=== PATIENT | male | born 1955 | race African-American/Black ===

== ENCOUNTER 2016-12-03 18:34 | Inpatient (IN) | payer MEDICAID ==
[~2016-12-03] VITALS: Ht 177.8 cm; Wt 98.9 kg
[2016-12-03 19:12] VITALS: BP 134/70
--- NOTE | 2016-12-03 19:54 | NUR ---
PATIENT BIB WHEELCHAIR TO ER BED 6.
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
--- NOTE | 2016-12-03 20:48 | NUR ---
All needs addressed. Pt is calm and cooperative.
--- NOTE | 2016-12-03 21:29 | NUR ---
Patient being evaluated by Dr. Weston at bedside.
--- NOTE | 2016-12-03 22:13 | NUR ---
Pt taken to x-ray via w/c. Addendum: 12/03/16 at 2219 by [facility] Went to x-ray via beata.
[2016-12-03 22:32] LABS: ANION GAP 12.3 (8-16); CALCIUM 8.7 mg/dL (8.5-10.1); CARBON DIOXIDE 26.1 mmol/L (21-32); POTASSIUM 3.4 mmol/L (3.5-5.1)
[2016-12-03 22:35] LABS: AMYLASE 113 U/L (25-115); LIPASE 152 U/L (73-393); PARTIAL THROMBOPLASTIN TIME 24.2 secs (22-35.6); PROTHROMBIN TIME 10.3 secs (10.8-13.4)
[2016-12-03 22:40] LABS: ALBUMIN 3.3 g/dL (3.4-5.0); TOTAL BILIRUBIN 0.2 mg/dL (0.0-1.0); TOTAL PROTEIN, SERUM 8.3 g/dL (6.4-8.2)
[2016-12-03 22:42] LABS: HEMOGLOBIN 13.1 g/dL (12.0-18.0); MEAN CORPUSCULAR HEMOGLOBIN 31 pg (27-31); MEAN CORPUSCULAR HGB CONC 33 g/dL (33-37); MEAN CORPUSCULAR VOLUME 94 fL (80-94); PLATELET COUNT (AUTO) 185 K/uL (140-450); RED BLOOD CELL COUNT(AUTO) 4.27 MIL/uL (4.20-6.10); RED CELL DISTRIBUTION WIDTH 13.6 % (11.6-13.7); WHITE BLOOD COUNT (AUTO) 5.9 K/uL (4.8-10.8)
--- NOTE | 2016-12-03 22:46 | NUR ---
Pt back from x-ray and placed in bed 6
[2016-12-03 23:02] LABS: EOSINOPHILS % (MANUAL) 4 % (0-4); LYMPHOCYTES % (MANUAL) 38 % (20-46); MONOCYTES % (MANUAL) 4 % (5-12); NEUTROPHILS % (MANUAL) 54 (43-65)
--- NOTE | 2016-12-03 23:05 | NUR ---
Patient appears to be resting comfortably in bed. No distress noted. All needs addressed.
--- NOTE | 2016-12-04 00:04 | NUR ---
Patient appears to be resting comfortably in bed. VSS. No distress noted.
[2016-12-04] MEDS ORDERED: NACL 0.9% 1,000 ML IV SCH ×2 (01:13→02:40)
[2016-12-04] MEDS ORDERED: HYDROcodone/APAP 7.5/325 MG 1 TAB PO PRN ×2 (01:15→02:40)
[2016-12-04] MEDS ORDERED: MORPHINE SULFATE 2 MG/ML SYR IVP PRN ×2 (01:15→02:40)
[2016-12-04] MEDS ORDERED: DOCUSATE SODIUM 100 MG GELCAP PO PRN ×2 (01:15→02:40)
[2016-12-04] MEDS ORDERED: ONDANSETRON 4 MG/2 ML VIAL IM/IVP PRN ×2 (01:15→02:40)
[2016-12-04 02:02] LABS: CHOL/HDL RATIO 4.1 (1-4.5); FREE T4 (FREE THYROXINE) 1.06 ng/dL (0.76-1.46); PHOSPHORUS 3.5 mg/dL (2.5-4.9); THYROID STIMULATING HORMONE 2.28 uIU/mL (0.34-3.74)
--- NOTE | 2016-12-04 02:08 | NUR ---
Patient will be admitted to care of Dr. Gregory. Admited to TELE. Will go to room 107-A. Belongings list completed. Report to Elia BEE.
--- NOTE | 2016-12-04 02:12 | NUR ---
Dr. Ibarra evaluating patient at bedside.
[2016-12-04 02:30] VITALS: BP 135/69
--- NOTE | 2016-12-04 02:30 | NUR ---
Admitted from ER, with chief complaint of CHEST PAIN, ABD PAIN, SOB AND WEAKNESS, DX CHEST PAIN, R/O ACS. 61 y/o, Male, Cooperative, RESTING IN BED, AOX4, ABLE TO VERBALIZE NEEDS. TRAVEL PHYSICAL THERAPIST IN PLACE. SCDs IN PLACE. PT C/O CHEST PAIN. SEE PAIN ASSESSMENT. PT REQUESTING TYLENOL, STATING THAT "NORCO MAKES ME CONSTIPATED." WILL ADMINISTER TYLENOL PRN. oriented to call light, bed, phone,television, bathroom, smoking policy, visiting hours, procedures, ID bracelet on. Belongings list checked. DISCUSSED AND REVIEWED PLAN OF CARE WITH PT. PT STATED "OKAY." SEIZURE PRECAUTIONS AND SAFETY MEASURES ENSURED. CALL LIGHT WITHIN REACH. WILL CONTINUE TO MONITOR.
--- NOTE | 2016-12-04 02:31 | NUR ---
Pt transferred to Tele 107-A on cardiac monitoring via [place] accompanied by EMT Francesca and FILTER TIP CATCHER Makayla. Pt's w/c and belongings taken down with patient by myself.
[2016-12-04] MEDS ORDERED: ACETAMINOPHEN 325 MG TAB PO PRN (02:40)
--- NOTE | 2016-12-04 02:59 | NUR ---
CALLED DR OSMAN, ELECTRICAL HELPER FOR DR LEWIS. DISCUSSED PT DX. ASKED MD ABOUT MAINTENANCE FLUIDS NS AT 140ML AND PT HX OF CHF, STATED IT IS OK AND HE WILL DECREASE TO NS AT 100ML. ASKED IF DIET CAN BE CHANGED FROM NPO TO NPO EXCEPT MEDS FOR DUE PO MEDS AT THIS TIME. AND CLARIFIED TROPONIN LAB DRAWS FOR Q8H. ORDERS PENDING, WILL CARRY OUT. Addendum: 12/04/16 at 0515 by Elia Kam RN DISCONTINUED MAINTENANCE FLUIDS.
[2016-12-04] MEDS: LISINOPRIL 10 MG TAB PO SCH ×2 (03:15→10:03)
[2016-12-04] MEDS: ASPIRIN 81 MG TAB.CHEW PO SCH ×2 (03:15→10:02)
--- NOTE | 2016-12-04 03:15 | NUR ---
PT SLEEPING BUT AROUSABLE. ADMINISTERED DUE MEDICATIONS ASPIRIN 81 MG PO AND LISINOPRIL 10MG PO ORDERED WITH EDUCATION. PT STATED "OKAY." PT TOLERATED MEDS WELL. UNABLE TO OVERRIDE DUE MED SIMVASTATIN 20MG PO FROM [facility], CALLED HOMEBIRTH MIDWIFE TO OVERRIDE MED.
[2016-12-04] MEDS ORDERED: LISINOPRIL 10 MG TAB ONE (03:16)
[2016-12-04] MEDS ORDERED: ASPIRIN 81 MG TAB.CHEW ONE (03:19)
[2016-12-04] MEDS: ACETAMINOPHEN 325 MG TAB PO PRN ×2 (03:40→15:46)
--- NOTE | 2016-12-04 03:40 | NUR ---
PT C/O PAIN. SEE PAIN ASSESSMENT. PT REQUESTED TYLENOL. ADMINISTERED PAIN MED WITH EDUCATION. PT TOLERATED WELL.
[2016-12-04 04:00] VITALS: BP 113/68
[2016-12-04] MEDS: SIMVASTATIN 20 MG TAB PO SCH ×2 (04:05→20:32)
--- NOTE | 2016-12-04 04:05 | NUR ---
PT SLEEPING BUT AROUSABLE. RECEIVED DUE MED SIMVASTATIN 20MG PO FROM CLOUD SYSTEMS ADMINISTRATOR. ADMINISTERED MED WITH EDUCATION. PT STATED "OKAY," PT TOLERATED MED WELL. ALL NEEDS MET. SAFETY MEASURES ENSURED. CALL LIGHT WITHIN REACH. WILL CONTINUE TO MONITOR.
[2016-12-04] MEDS ORDERED: POTASSIUM CHLORIDE 10 MEQ TABER PO SCH (05:30)
[2016-12-04 07:12] LABS: ANION GAP 11.1 (8-16); CALCIUM 8.7 mg/dL (8.5-10.1); CARBON DIOXIDE 26.4 mmol/L (21-32); CREATININE 0.9 mg/dL (0.7-1.3); POTASSIUM 3.5 mmol/L (3.5-5.1)
[2016-12-04 07:13] LABS: HEMATOCRIT 41.5 % (36-52)
[2016-12-04 07:18] LABS: PHOSPHORUS 3.4 mg/dL (2.5-4.9)
--- NOTE | 2016-12-04 07:20 | NUR ---
ENDORSED PLAN OF CARE TO AM NURSE. CONDITION STABLE.
[2016-12-04 07:28] LABS: HEMOGLOBIN 13.6 g/dL (12.0-18.0); MEAN CORPUSCULAR HEMOGLOBIN 31 pg (27-31); MEAN CORPUSCULAR HGB CONC 33 g/dL (33-37); MEAN CORPUSCULAR VOLUME 94 fL (80-94); PLATELET COUNT (AUTO) 185 K/uL (140-450); RED BLOOD CELL COUNT(AUTO) 4.44 MIL/uL (4.20-6.10); RED CELL DISTRIBUTION WIDTH 13.7 % (11.6-13.7)
--- NOTE | 2016-12-04 07:30 | NUR ---
REPORT RECEIVE FROM BOX TOE MAKER NURSE. PT SLEEPING COMFORTABLY. A&O X4. RESPIRATION EVEN AND UNLABORED ON ROOM AIR, IV ON L FA 20G ON SALINE LOCK, NO COMPLAINTS OF NAUSEA AND VOMITING, PT STATES MILD CHEST PAIN BUT TOLERABLE, BED ON LOW POSITION, CALL LIGHTS WITHIN REACH, PT ON CONTINUOUS TELE MONITOR. PLAN OF CARE REVIEWED WITH PT. PT VERBALIZED UNDERSTANDING. CONSENTED FOR CONTRAST CT. WILL CONTINUE TO MONITOR.
--- NOTE | 2016-12-04 07:55 | NUR ---
PATIENT HAS BEEN SCREENED AND CATEGORIZED MODERATE RISK. PATIENT WILL BE SEEN WITHIN 3-5 DAYS OF ADMISSION. 12/07/16 TO 12/09/[address]
[2016-12-04 07:59] LABS: APPEARANCE,URINE CLEAR (CLEAR); BILIRUBIN,URINE NEGATIVE (NEGATIVE); BLOOD, URINE NEGATIVE (NEGATIVE); COLOR,URINE YELLOW (YELLOW); LEUKOCYTE ESTERASE ,URINE NEGATIVE (NEGATIVE); NITRITE, URINE NEGATIVE (NEGATIVE); PH,URINE 5.5 (5.0-9.0); PROTEIN,URINE NEGATIVE (NEGATIVE); UGLUCOSE NEGATIVE (NEGATIVE); UROBILINOGEN,URINE 0.2 EU/dL (0.2 - 1)
[2016-12-04 08:00] VITALS: BP 127/75
[2016-12-04 08:51] LABS: BACTERIA,URINE None Seen /HPF (None Seen); RBC,URINE NONE SEEN /HPF (0-5); SQUAMOUS EPITHELIAL CELL,UR None Seen /LPF (0-3 (FEW)); WBC,URINE 0-5 (RARE) /HPF (0-5)
[2016-12-04 08:54] LABS: EOSINOPHILS % (MANUAL) 4 % (0-4); LYMPHOCYTES % (MANUAL) 35 % (20-46); MONOCYTES % (MANUAL) 5 % (5-12); NEUTROPHILS % (MANUAL) 56 (43-65)
[2016-12-04 08:55] LABS: PLATELET ESTIMATE ADEQUATE
[2016-12-04] MEDS: LORATADINE 10 MG TAB PO SCH (10:01)
[2016-12-04] MEDS: levETIRAcetam 500 MG TAB PO SCH ×2 (10:02→20:32)
[2016-12-04] MEDS: FINASTERIDE 5 MG TAB PO SCH (10:02)
--- NOTE | 2016-12-04 11:06 | NUR ---
PT SLEEPING COMFORTABLY. RR EVEN AND UNLABORED ON ROOM AIR. NO SOB. NO RESTLESSNESS. BED ON LOW POSITION. CALL GARCÍA WITHIN REACH. AWAITING CAT SCA. WILL CONTINUE TO MONITOR.
--- NOTE | 2016-12-04 11:25 | NUR ---
ECHOCARDIOGRAM BEING DONE AT BEDSIDE AT THIS TIME.
--- NOTE | 2016-12-04 11:48 | NUR ---
DR LEWIS AND HIS TEAM AT BEDSIDE AT THIS TIME. PER DR CADET, CT TO BE CANCELLED AND RESUME REGULAR DIET.
[2016-12-04 12:23] VITALS: BP 103/52
--- NOTE | 2016-12-04 15:40 | NUR ---
PT RESTING QUIETLY IN NAD, RESP EVEN UNLABORED ON ROOM AIR, REPORTS THROAT PAIN 5/10, STATES "ONLY WANT TYLENOL", PT SPEAKS CLEARLY, CATRACHO PO WELL, FRESH WATER PROVIDED, WILL MEDICATE WITH PRN TYLENOL.
[2016-12-04 16:00] VITALS: BP 112/46
--- NOTE | 2016-12-04 19:28 | NUR ---
REPORT GIVEN TO PM NURSE. PT CONDITION IS STABLE.
--- NOTE | 2016-12-04 19:29 | NUR ---
RECEIVED REPORT FROM DAY RN FOR CONTINUITY OF CARE. PATIENT IS ALERT AND ORIENTED X4, DISCUSSED PLAN OF CARE WITH PATIENT, VERBALIZED UNDERSTANDING. SHIFT ASSESSMENT DONE, VITAL SIGNS STABLE. PATIENT STATES HE FEELS SHORT OF BREATHE, PLACED ON 2L NC, O2 SAT AT 95-98%. PATIENT DENIES PAIN AT THIS TIME. PATIENT HAS IV TO RT FA AND LT HAND PATENT AND FLUSHED. SAFETY/SEIZURE PRECAUTIONS ENFORCED, CALL LIGHT WITHIN REACH. WILL CONTINUE TO MONITOR.
[2016-12-04 20:00] VITALS: BP 147/67
--- NOTE | 2016-12-04 20:32 | NUR ---
DUE MEDICATIONS ADMINISTERED, TOLERATED WELL. PATIENT DENIES PAIN AT THIS TIME CALL LIGHT WITHIN REACH, WILL CONTINUE TO MONITOR.
--- NOTE | 2016-12-04 22:05 | NUR ---
PATIENT SLEEPING AT THIS TIME, NO S/S OF DISTRESS NOTED. CALL LIGHT WITHIN REACH, WILL CONTINUE TO MONITOR.
[2016-12-05] VITALS: BP 119/78
--- NOTE | 2016-12-05 00:10 | NUR ---
VITAL SIGNS STABLE, PATIENT RESTING IN BED NO S/S OF DISTRESS OR DISCOMFORT NOTED. CALL LIGHT WITHIN REACH.
--- NOTE | 2016-12-05 02:05 | NUR ---
PATIENT SLEEPING AT THIS TIME, NO S/S OF DISTRESS OR DISCOMFORT NOTED. CALL LIGHT WITHIN REACH.
[2016-12-05 04:00] VITALS: BP 130/87
--- NOTE | 2016-12-05 04:10 | NUR ---
VITAL SIGNS STABLE, PATIENT RESTING IN BED NO S/S OF DISTRESS OR DISCOMFORT NOTED. CALL LIGHT WITHIN REACH.
[2016-12-05] MEDS: ACETAMINOPHEN 325 MG TAB PO PRN (05:48)
--- NOTE | 2016-12-05 05:48 | NUR ---
DR. CADET IN TO SEE PATIENT, PT C/O LEG PAIN 11/08, REFUSED IV PAIN MEDICATION AND NORCO STATES THAT "TYLENOL WORKED FINE, NORCO CONSTIPATES ME." INFORMED MD, ADMINISTERED MEDICATION. WILL CONTINUE TO MONITOR.
[2016-12-05 06:59] LABS: HEMATOCRIT 42.7 % (36-52); HEMOGLOBIN 14.1 g/dL (12.0-18.0); MEAN CORPUSCULAR HEMOGLOBIN 31 pg (27-31); MEAN CORPUSCULAR HGB CONC 33 g/dL (33-37); MEAN CORPUSCULAR VOLUME 93 fL (80-94); PLATELET COUNT (AUTO) 193 K/uL (140-450); RED BLOOD CELL COUNT(AUTO) 4.58 MIL/uL (4.20-6.10); RED CELL DISTRIBUTION WIDTH 13.5 % (11.6-13.7); WHITE BLOOD COUNT (AUTO) 4.8 K/uL (4.8-10.8)
[2016-12-05 07:04] LABS: ANION GAP 10.3 (8-16); CALCIUM 8.7 mg/dL (8.5-10.1); CARBON DIOXIDE 28.3 mmol/L (21-32); POTASSIUM 3.6 mmol/L (3.5-5.1)
[2016-12-05 07:07] LABS: MAGNESIUM 2.2 mg/dL (1.8-2.4); PHOSPHORUS 3.1 mg/dL (2.5-4.9)
--- NOTE | 2016-12-05 07:15 | NUR ---
ENDORSED PATIENT TO DAY RN FOR CONTINUITY OF CARE, PATIENT IS IN STABLE CONDITION AT THIS TIME.
--- NOTE | 2016-12-05 07:16 | NUR ---
RECEIVED REPORT, ASSUMED CARE. PT AAOX4. RESPIRATION EVEN AND UNLABORED. DENIES PAIN AT THIS TIME. SL RT FA 20G AND TO LT HAND 20G. DISCUSSED PLAN OF CARE. PT VERBALIZED UNDERSTANDING. WILL CONTINUE TO MONITOR. CALL LIGHT PLACED WITHIN EASY REACH.
[2016-12-05 08:00] VITALS: BP 149/66
[2016-12-05 08:10] LABS: BAND % (MANUAL) 0 % (0-8); BASOPHILS % (MANUAL) 0 % (0-2); EOSINOPHILS % (MANUAL) 3 % (0-4); LYMPHOCYTES % (MANUAL) 35 % (20-46); MONOCYTES % (MANUAL) 7 % (5-12); NEUTROPHILS % (MANUAL) 55 (43-65); PLATELET ESTIMATE ADEQUATE
[2016-12-05] MEDS: levETIRAcetam 500 MG TAB PO SCH ×2 (08:55→20:17)
[2016-12-05] MEDS: ASPIRIN 81 MG TAB.CHEW PO SCH (08:55)
[2016-12-05] MEDS: LORATADINE 10 MG TAB PO SCH (08:55)
[2016-12-05] MEDS: LISINOPRIL 10 MG TAB PO SCH (08:55)
[2016-12-05] MEDS: FINASTERIDE 5 MG TAB PO SCH (08:55)
--- NOTE | 2016-12-05 09:01 | NUR ---
ALL SCHEDULED MEDS ADMINISTERED ORDERED. PT TOLERATED WELL WITH NO ADVERSE REACTION. WILL CONTINUE TO MONITOR. CALL LIGHT KEPT WITHIN EASY REACH.
--- NOTE | 2016-12-05 11:22 | NUR ---
PT AWAKE AND VERBALLY RESPONSIVE. RESTING COMFORTABLY IN BED. PT HAD SPONGE BATH, PERFORMED HIS OWN ADL WITH MINIMAL ASSIST. DENIES PAIN AT THIS TIME. WILL CONTINUE TO MONITOR. CALL LIGHT WITHIN EASY REACH.
[2016-12-05 12:00] VITALS: BP 123/62
[2016-12-05 12:49] LABS: T4 (THYROXINE) 10.4 ug/dL (4.5-12.0)
--- NOTE | 2016-12-05 13:16 | NUR ---
ROUNDS MADE, PT ASLEEP BUT EASILY AROUSABLE. NO FACIAL GRIMACING OR MOANING INDICATING PAIN. ALL NEEDS ANTICIPATED. CALL LIGHT WITHIN EASY REACH. WILL CONTINUE TO MONITOR.
--- NOTE | 2016-12-05 16:09 | NUR ---
DR. BEATTY TRANSFERRED PT TO [facility]. PT MADE AWARE AND VERBALIZED UNDERSTANDING. PT DENIES ANY PAIN OR DISCOMFORT AT THIS TIME. WILL CONTINUE TO MONITOR.
--- NOTE | 2016-12-05 19:05 | NUR ---
PT AWAKE AND VERBALLY RESPONSIVE. NO S/S OF RESPIRATORY DISTRESS. ENDORSED TO NEXT SHIFT FOR CONTINUITY OF CARE. PT IN STABLE CONDITION.
--- NOTE | 2016-12-05 19:06 | NUR ---
RECEIVED REPORT FROM DAY RN FOR CONTINUITY OF CARE. PATIENT IS ALERT AND ORIENTED X4, DISCUSSED PLAN OF CARE WITH PATIENT, VERBALIZED UNDERSTANDING. SHIFT ASSESSMENT DONE, VITAL SIGNS STABLE AT THIS TIME. NO S/S OF RESPIRATORY DISTRESS NOTED ON ROOM AIR. PATIENT DENIES PAIN. PATIENT HAS IV TO RT FA PATENT AND FLUSHED. PT C/O LT HAND IV HAVING PAIN, REMOVED WITH CANNULA INTACT. SAFETY/FALL/ SEIZURE PRECAUTIONS ENFORCED, CALL LIGHT WITHIN REACH. WILL CONTINUE TO MONITOR.
[2016-12-05 20:00] VITALS: BP 106/51
--- NOTE | 2016-12-05 20:17 | NUR ---
DUE MEDICATIONS ADMINISTERED, TOLERATED WELL. PATIENT DENIES PAIN AT THIS TIME, SAFETY MEASURES ENFORCED. CALL LIGHT WITHIN REACH.
[2016-12-05] MEDS: SIMVASTATIN 20 MG TAB PO SCH (20:18)
--- NOTE | 2016-12-05 21:52 | NUR ---
PATIENT RESTING AT THIS TIME, NO S/S OF DISTRESS OR DISCOMFORT NOTED. CALL LIGHT WITHIN REACH, WILL CONTINUE TO MONITOR.
[2016-12-06] VITALS: BP 133/70
--- NOTE | 2016-12-06 00:10 | NUR ---
VITAL SIGNS STABLE, PATIENT SLEEPING, NO S/S OF DISTRESS OR DISCOMFORT NOTED. CALL LIGHT WITHIN REACH.
--- NOTE | 2016-12-06 01:48 | NUR ---
PATIENT SLEEPING AT THIS TIME, NO S/S OF DISTRESS OR DISCOMFORT NOTED. CALL LIGHT WITHIN REACH.
--- NOTE | 2016-12-06 04:30 | NUR ---
PATIENT SITTING AT EDGE OF BED, DENIES PAIN, CALL LIGHT WITHIN REACH. WILL CONTINUE TO MONITOR.
--- NOTE | 2016-12-06 05:59 | NUR ---
PATIENT SLEEPING AT THIS TIME , NO S/S OF DISTRESS OR DISCOMFORT NOTED. CALL LIGHT WITHIN REACH, SAFETY MEASURES ENFORCED, WILL CONTINUE TO MONITOR.
--- NOTE | 2016-12-06 07:15 | NUR ---
ENDORSED PATIENT TO DAY RN FOR CONTINUITY OF CARE, PATIENT IS IN STABLE CONDITION.
--- NOTE | 2016-12-06 07:31 | NUR ---
RECEIVED PT IN BED. AWAKE. ALERT ORIENTEDX4. NO SOB NOTED. DENIES ANY PAIN OR DISCOMFORT AT THIS TIME. POSITIVE BOWEL SOUNDS NOTED ON FOUR QUADRANTS. PT AMBULATORY. SAFETY PRECAUTION IN PLACE. CALL LIGHT WITHIN REACH.
[2016-12-06 08:00] VITALS: BP 122/79
[2016-12-06] MEDS ORDERED: LISI10TA11 PO (08:29)
[2016-12-06] MEDS ORDERED: OMEP20TC24 PO (08:29)
[2016-12-06] MEDS ORDERED: KEP500 PO (08:29)
[2016-12-06] MEDS: levETIRAcetam 500 MG TAB PO SCH (08:53)
[2016-12-06] MEDS: LORATADINE 10 MG TAB PO SCH (08:53)
[2016-12-06] MEDS: ASPIRIN 81 MG TAB.CHEW PO SCH (08:53)
[2016-12-06] MEDS: FINASTERIDE 5 MG TAB PO SCH (08:53)
[2016-12-06] MEDS: LISINOPRIL 10 MG TAB PO SCH (08:54)
[2016-12-06 09:23] LABS: BASOPHILS # (AUTO) 0.2 K/uL (0.00-0.22); BASOPHILS % (AUTO) 2.9 % (0.0-2.0); EOSINOPHILS # (AUTO) 0.1 K/uL (0-0.4); EOSINOPHILS % (AUTO) 1.4 % (0.0-4.0); HEMATOCRIT 43.8 % (36-52); HEMOGLOBIN 14.3 g/dL (12.0-18.0); LYMPHOCYTES # (AUTO) 2.2 K/uL (2.0-11.5); MEAN CORPUSCULAR HEMOGLOBIN 30 pg (27-31); MEAN CORPUSCULAR HGB CONC 33 g/dL (33-37); MEAN CORPUSCULAR VOLUME 93 fL (80-94); MONOCYTES # (AUTO) 0.1 K/uL (0.8-1.0); MONOCYTES % (AUTO) 2.6 % (1.7-9.3); NEUTROPHILS # (AUTO) 2.8 K/uL (1.8-7.7); NEUTROPHILS % (AUTO) 52.1 % (42.2-75.2); PLATELET COUNT (AUTO) 207 K/uL (140-450); RED BLOOD CELL COUNT(AUTO) 4.73 MIL/uL (4.20-6.10); RED CELL DISTRIBUTION WIDTH 13.3 % (11.6-13.7); WHITE BLOOD COUNT (AUTO) 5.4 K/uL (4.8-10.8)
[2016-12-06 09:38] LABS: ANION GAP 9.2 (8-16); CALCIUM 8.8 mg/dL (8.5-10.1); CARBON DIOXIDE 30.6 mmol/L (21-32); POTASSIUM 3.8 mmol/L (3.5-5.1)
[2016-12-06 10:16] LABS: MAGNESIUM 1.9 mg/dL (1.8-2.4); PHOSPHORUS 2.3 mg/dL (2.5-4.9)
--- NOTE | 2016-12-06 10:37 | NUR ---
FOLLOWED UP WITH HOME DEMONSTRATION AGENT FOR THE HOMELESS PACKET TO BE DISCUSSED WITH PT BEFORE DISCHARGE.
--- NOTE | 2016-12-06 10:48 | NUR ---
CARCASS TRIMMER MALATHI CAME TO SEE PT AND EXPLAINED HOMELESS PACKET TO PT. HOMELESS RESOURCES EXPLAINED AND DISCUSSED WITH PT. PT VERBALIZED UNDERSTANDING. PT SIGNED HOMELESS PATIENT WAIVER FORM. DISCHARGE INSTRUCTIONS AND TEACHINGS EXPLAINED AND GIVEN TO PT. PT VERBALIZED UNDERSTANDING. PT SIGNED DISCHARGE PAPERS. REMINDED PT TO FOLLOW UP WITH PCP INDICATED TO HIS DISCHARGE PAPERS. PT VERBALIZED UNDERSTANDING.
--- NOTE | 2016-12-06 11:05 | NUR ---
PER NITROGLYCERIN SEPARATOR OPERATOR MALATHI. PT REQUESTED IF HIS BROTHER ALEC CAN COME PICK HIM UP. CALLED ALEC HANSEN'S NUMBER ON FILE [phone]. WRONG NUMBER. ASKED PT FOR BROTHERS NUMBER [phone]. NO ANSWER LEFT MESSAGE VIA VOICE MAILBOX. AWAITING CALL BACK.
--- NOTE | 2016-12-06 11:21 | NUR ---
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 AND HE IS ON HIS WAY. PT MADE AWARE.
--- NOTE | 2016-12-06 11:28 | NUR ---
SPOKE WITH GIAN FROM [facility] AND GAVE HER VERBAL REPORT AND TOLD HER THE PATIENT WAS DISCHARGED TODAY. FAXED ER REPORT, H&P AND ECHO RESULTS TO HER AT [phone] PHONE GIAN [phone] Addendum: 12/06/16 at 1131 by Michelle Can ER REPORT H&P AND ECO RESULTS FAXED TO GIAN PER HER REQUEST. ALSO FAXED DISCHARGE SUMMARY
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
--- NOTE | 2016-12-06 14:30 | NUR ---
UNABLE TO FAX DISCHARGE SUMMARY, ONLY IN DRAFT FORM.
== END 2016-12-06 12:50 | disposition home or self-care (01) | DRG 243 ==
LOC: MED 18:34 → MTU 12-04 01:13
PROVIDERS: ADMIT Student in an Organized Health Care Education/Training Program; ATTEND Student in an Organized Health Care Education/Training Program
DX: K21.9 Gastro-esophageal reflux disease without esophagitis (principal); E44.1 Mild protein-calorie malnutrition; R56.9 Unspecified convulsions; I50.9 Heart failure, unspecified; I35.1 Nonrheumatic aortic (valve) insufficiency; R73.03 Prediabetes; E83.39 Other disorders of phosphorus metabolism; F17.210 Nicotine dependence, cigarettes, uncomplicated; K66.0 Peritoneal adhesions (postprocedural) (postinfection); N40.0 Benign prostatic hyperplasia without lower urinary tract symptoms; E87.6 Hypokalemia; Z86.718 Personal history of other venous thrombosis and embolism; Z79.01 Long term (current) use of anticoagulants; Z71.6 Tobacco abuse counseling; Z68.31 Body mass index [BMI] 31.0-31.9, adult
CPT/HCPCS: 36415; 74022; 80048; 80053; 81001; 82150; 83036; 83690; 83735; 83880; 84100; 84436; 84439; 84443; 84479; 84484; 85025; 85610; 85730; 87081; 93005; 93922; 93925; 93971; 99285; J7030

== ENCOUNTER 2021-02-15 15:27 | Emergency (ER) | payer MEDICAID, OTHER ==
[~2021-02-15] VITALS: Ht 172.7 cm; Wt 72.6 kg
[~2021-02-15 15:27] MED LIST: KEP500 PO; OMEP-278 PO
--- NOTE | 2021-02-15 15:27 | NUR ---
IRINA ALS TO ER BED 6
[2021-02-15] MEDS ORDERED: NACL 0.9% 2,000 ML IV ONE (15:35)
[2021-02-15] MEDS ORDERED: NALOXONE PFS 2 MG/2 ML SYR IVP ONE (15:35)
--- NOTE | 2021-02-15 16:00 | NUR ---
LAB BEDSIDE AND COLLECTED BEDWORK
--- NOTE | 2021-02-15 16:10 | NUR ---
ZENA ROMANO TO XRAY VIA [facility]
[2021-02-15 16:11] VITALS: BP 139/80
--- NOTE | 2021-02-15 16:25 | NUR ---
PT RETURNED TO BED [address] AND XRAY VIA [facility]
--- NOTE | 2021-02-15 16:32 | NUR ---
65 Y MALE BIBA FROM [facility] IN [place] SLOUCHED OVER IN HIS WHEELCHAIR. PER EMS PT WAS UNRESPONSIVE, A&OX1, AND UNABLE TO ANSWER ANY QUESTIONS. FIRE PLACED 18 G IV IN PT L AC. SUGAR ON ARRIVAL WAS 89. UPON ASSESSMENT PUPILS ARE SLIGHTLY PINPOINT, BREATH SOUNDS CLEAR, S1/S2 HEARD, AND CAP REFILL <2 SECONDS. PT CURRENTLY IN AND OUT OF CONSCIOUSNESS AT THIS TIME PMH: DM, HTN, SEIZURES NKA
[2021-02-15] MEDS ORDERED: guaiFENesin DM 200/20 MG-10 ML 10 ML UDC PO ONE (17:15)
[2021-02-15] MEDS ORDERED: cefTRIAXone 1,000 MG VIAL ONE (17:21)
--- NOTE | 2021-02-15 17:31 | NUR ---
PT MOVED FROM 6 TO BED 3 DUE TO PATIENT COUGHING AND REMOVING MASK
--- NOTE | 2021-02-15 17:35 | NUR ---
URINE COLLECTED AND HANDED TO NARCOTICS AND VICE DETECTIVE ARTHUR
[2021-02-15 17:44] LABS: HEMOGLOBIN 6.2 g/dL (12.0-18.0)
[2021-02-15 17:45] LABS: HEMATOCRIT 19.1 % (36-52)
[2021-02-15 17:48] LABS: SODIUM SERUM 137 mmol/L (136-145)
[2021-02-15 17:50] LABS: POTASSIUM 2.9 mmol/L (3.5-5.1)
[2021-02-15 17:52] LABS: ANION GAP 13.6 (8-16); ASPARTATE AMINOTRANSFERASE 19 U/L (15-37); CARBON DIOXIDE 23.3 mmol/L (21-32); CHLORIDE 103 mmol/L (98-107); CREATININE 1.3 mg/dL (0.6-1.3); GFR ARICAN-AMERICAN 71 mL/min (>90); GLUCOSE 121 mg/dL (74-106); TOTAL BILIRUBIN 0.1 mg/dL (0.0-1.0); UREA NITROGEN, BLOOD 24 mg/dL (7-18)
[2021-02-15 17:53] LABS: ALBUMIN 1.7 g/dL (3.4-5.0); SALICYLATE < 2.8 mg/dL (2.8-20.0)
[2021-02-15 17:54] LABS: ACETAMINOPHEN < 0.5 ug/ml (10-30); CORRECTED WHITE BLOOD COUNT 4.3 K/uL (4.5-11.0); RED BLOOD CELL COUNT(AUTO) 2.21 MIL/uL (4.20-6.10); WHITE BLOOD COUNT (AUTO) 4.3 K/uL (4.8-10.8)
[2021-02-15 17:55] LABS: HEMATOCRIT 19.1 % (36-52); HEMOGLOBIN 6.2 g/dL (12.0-18.0)
[2021-02-15] MEDS ORDERED: PANTOPRAZOLE 40 MG INJ VIAL IVP ONE (17:55)
[2021-02-15] MEDS ORDERED: KCL 20 MEQ/WATER INJ PREMIX 200 ML IV ONE (17:55)
[2021-02-15 17:56] LABS: MEAN CORPUSCULAR HEMOGLOBIN 28 pg (27-31); MEAN CORPUSCULAR HGB CONC 32 g/dL (33-37); MEAN CORPUSCULAR VOLUME 86.4 fL (80-94); PLATELET COUNT (AUTO) 139 K/uL (140-450); RED CELL DISTRIBUTION WIDTH 22.7 % (11.6-13.7)
[2021-02-15 18:19] LABS: APPEARANCE,URINE CLEAR (CLEAR); BILIRUBIN,URINE NEGATIVE (NEGATIVE); BLOOD, URINE NEGATIVE (NEGATIVE); COLOR,URINE YELLOW (YELLOW); LEUKOCYTE ESTERASE ,URINE NEGATIVE (NEGATIVE); NITRITE, URINE NEGATIVE (NEGATIVE); UGLUCOSE NEGATIVE (NEGATIVE)
--- NOTE | 2021-02-15 18:21 | NUR ---
LUIS MIGUEL FREDERIC SWAB COLLECTED AND NOVEL COLLECTED BEDSIDE AND WALKED OVER TO LAB
[2021-02-15 18:44] LABS: BARBITURATE, URINE NEGATIVE ng/ml (NEG <=200); BENZODIAZEPINE, URINE NEGATIVE ng/mL (NEG <=200); CANNABINOID, URINE NEGATIVE ng/mL (NEG <=50); COCAINE, URINE NEGATIVE ng/mL (NEG <=300); OPIATE, URINE NEGATIVE ng/mL (NEG <=2000); PHENCYCLIDINE SCREEN,URINE NEGATIVE ng/mL (NEG <=25)
--- NOTE | 2021-02-15 18:54 | NUR ---
PATIENT CURRENTLY YELLING "HE WANTS TO LEAVE AND HE DOES NOT WANT TO BE HERE." ER MADE AWARE, BUT STATED PATIENT IS DOES NOT HAVE MENTAL CAPACITY TO MAKE DECISION AT THIS TIME
[2021-02-15] MEDS ORDERED: LORazepam 2 MG/ML VIAL IVP PRN (19:10)
[2021-02-15] MEDS ORDERED: POTASSIUM CHL 20MEQ/D5-NS 1,000 ML IV ONE (19:10)
[2021-02-15] MEDS ORDERED: MORPHINE SULFATE 2 MG/ML SYR IVP PRN (19:10)
[2021-02-15] MEDS ORDERED: ALBUTEROL 0.083% 2.5 MG/3 ML NEBU INH PRN (19:10)
[2021-02-15] MEDS ORDERED: HALOPERIDOL IM 5 MG/ML VIAL IM ONE (19:15)
[2021-02-15] MEDS ORDERED: LORazepam 2 MG/ML VIAL IVP ONE (19:15)
--- NOTE | 2021-02-15 19:22 | NUR ---
REPORT RECEIVED FROM CRISTAL WHITLEY FOR CONTINUITY OF PT CARE AT THIS TIME.
--- NOTE | 2021-02-15 19:22 | NUR ---
Pt report given to CRISTAL corral. Transfer of care at this time.
[2021-02-15 19:36] VITALS: BP 126/102
--- NOTE | 2021-02-15 19:36 | NUR ---
PATIENT ELOPED FROM FACILITY. DISCHARGE INSTRUCTIONS NOT GIVEN TO PATIENT. PT ELOPED PRIOR TO NURSING ASSESSMENT. CALLED DR. BLEVINS TO NOTIFIED, AWAITING RESTAURANT OPERATIONS MANAGER BACK.
[2021-02-15 19:44] LABS: PROTHROMBIN TIME 10.8 secs (10.8-13.4)
[2021-02-15 19:45] LABS: CREATINE KINASE MB 1.5 ng/mL (0-3.6)
--- NOTE | 2021-02-15 19:50 | NUR ---
ADMITTING PHYSICIAN, DR. BLEVINS, NOTIFIED OF PATIENT ELOPEMENT.
[2021-02-15] MEDS ORDERED: AZITHROMYCIN 500 MG in DEXTROSE 5% 250 ML IV SCH (21:00)
[2021-02-15] MEDS ORDERED: levETIRAcetam 1,000 MG in NACL 0.9% 100 ML IV SCH (21:00)
[2021-02-16] MEDS ORDERED: ASPIRIN 81 MG TAB.CHEW PO SCH (09:00)
[2021-02-16] MEDS ORDERED: PANTOPRAZOLE 40 MG INJ VIAL IVP SCH (09:00)
== END 2021-02-15 19:18 | disposition admitted as inpatient to this hospital (09) ==
LOC: MED 15:27 → MTU 19:18 → UNDOADMIN 19:18 → UNDODISIN 19:36
DX: A41.9 Sepsis, unspecified organism (principal); J18.9 Pneumonia, unspecified organism; G93.41 Metabolic encephalopathy; E87.6 Hypokalemia; D64.9 Anemia, unspecified; I10 Essential (primary) hypertension; Z79.899 Other long term (current) drug therapy; Z98.890 Other specified postprocedural states
CPT/HCPCS: 36415; 70450; 71045; 80053; 80305; 81003; 82550; 82553; 83605; 84484; 85018; 85025; 85610; 85730; 86886; 86900; 86901; 86920; 87040; 87426; 93005; 96361; 96365; 96367; 96375; 99291; C9113; G0480; G0482; J0696; J2310; J3480; Q0092; U0003; J0456; J1953; J7030; J7060

== ENCOUNTER 2021-09-01 18:22 | Emergency (ER) | payer OTHER ==
[~2021-09-01] VITALS: Ht 177.8 cm; Wt 67.1 kg
[2021-09-01 19:19] VITALS: BP 134/73
[2021-09-01] MEDS ORDERED: KEP500 PO (21:40)
[2021-09-01] MEDS ORDERED: PHEN100C3 PO (21:40)
[2021-09-01] MEDS ORDERED: IBUP-2213 PO (21:40)
[2021-09-01] MEDS ORDERED: CEPH-588 PO (21:45)
[2021-09-01 21:46] VITALS: BP 134/73
== END 2021-09-01 21:46 | disposition home or self-care (01) ==
LOC: MED 18:22
DX: Z76.0 Encounter for issue of repeat prescription (principal); R56.9 Unspecified convulsions; M54.9 Dorsalgia, unspecified; E11.9 Type 2 diabetes mellitus without complications; I10 Essential (primary) hypertension; Z79.2 Long term (current) use of antibiotics; Z79.899 Other long term (current) drug therapy; Z79.01 Long term (current) use of anticoagulants
CPT/HCPCS: 99281

== ENCOUNTER 2022-05-11 18:48 | Inpatient (IN) | payer OTHER ==
[~2022-05-11] VITALS: Ht 175.3 cm; Wt 74.8 kg
[~2022-05-11 18:48] MED LIST changes: +CEPH-588 PO; +IBUP-2213 PO; +PHEN100C3 PO
[2022-05-11 18:53] VITALS: BP 129/78
--- NOTE | 2022-05-11 18:53 | NUR ---
BIBA TAKEN TO BED 3
[2022-05-11] MEDS ORDERED: NACL 0.9% 1,000 ML IV ONE ×2 (19:00→22:25)
[2022-05-11] MEDS ORDERED: ACETAMINOPHEN EXTRA STRENGTH 500 MG TAB PO ONE (19:00)
[2022-05-11 19:37] LABS: BASOPHILS % (AUTO) 0.4 % (0.0-2.0); LYMPHOCYTES # (AUTO) 0.4 K/uL (2.0-11.5); LYMPHOCYTES % (AUTO) 9.4 % (20.5-51.1); MEAN CORPUSCULAR HEMOGLOBIN 28 pg (27-31); MEAN CORPUSCULAR HGB CONC 35 g/dL (33-37); MEAN CORPUSCULAR VOLUME 81.4 fL (80-94); MONOCYTES # (AUTO) 0.3 K/uL (0.8-1.0); MONOCYTES % (AUTO) 5.9 % (1.7-9.3); NEUTROPHILS # (AUTO) 3.8 K/uL (1.8-7.7); NEUTROPHILS % (AUTO) 84.3 % (42.2-75.2); PLATELET COUNT (AUTO) 113 K/uL (140-450); RED CELL DISTRIBUTION WIDTH 22.3 % (11.6-13.7); WHITE BLOOD COUNT (AUTO) 4.5 K/uL (4.8-10.8)
[2022-05-11 19:45] LABS: HEMATOCRIT 19.5 % (36-52); HEMOGLOBIN 6.8 g/dL (12.0-18.0)
[2022-05-11] MEDS ORDERED: ACETAMINOPHEN 650 MG SUPP RC ONE (20:00)
--- NOTE | 2022-05-11 20:10 | NUR ---
XRAY AT BEDSIDE
[2022-05-11 20:13] LABS: ALBUMIN 2.3 g/dL (3.4-5.0); ANION GAP 15.5 (8-16); ASPARTATE AMINOTRANSFERASE 55 U/L (15-37); CARBON DIOXIDE 23.4 mmol/L (21-32); CHLORIDE 93 mmol/L (98-107); CREATININE 1.4 mg/dL (0.6-1.3); GFR ARICAN-AMERICAN 65 mL/min (>90); GLUCOSE 94 mg/dL (74-106); POTASSIUM 3.9 mmol/L (3.5-5.1); SODIUM SERUM 128 mmol/L (136-145); TOTAL BILIRUBIN 0.5 mg/dL (0.0-1.0); UREA NITROGEN, BLOOD 29 mg/dL (7-18)
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
--- NOTE | 2022-05-11 21:30 | NUR ---
PT TO CT
[2022-05-11] MEDS ORDERED: cefTRIAXone 1,000 MG VIAL ONE (21:45)
--- NOTE | 2022-05-11 21:54 | NUR ---
COVID AND FLU SWABS COLLECTED AND SENT TO LAB
--- NOTE | 2022-05-11 22:31 | NUR ---
ATTEMPTED TO STRAIGHT CATH PT . NO URINE OUTPUT. DR TORIBIO AWARE SECOND LITER OF NS STARTED
[2022-05-11 22:54] LABS: APPEARANCE,URINE CLEAR (CLEAR); BILIRUBIN,URINE NEGATIVE (NEGATIVE); BLOOD, URINE 1+ (NEGATIVE); COLOR,URINE YELLOW (YELLOW); LEUKOCYTE ESTERASE ,URINE NEGATIVE (NEGATIVE); NITRITE, URINE NEGATIVE (NEGATIVE); UGLUCOSE NEGATIVE (NEGATIVE)
--- NOTE | 2022-05-11 22:59 | NUR ---
URINE OBTAINED AND SENT TO LAB. PT WAS ABLE TO URINATE ON OWN.
[2022-05-11 23:05] LABS: RBC,URINE 0-5 /HPF (0-5); WBC,URINE 0-5 /HPF (0-5)
[2022-05-11] MEDS ORDERED: ONDANSETRON 4 MG/2 ML VIAL IVP PRN (23:05)
[2022-05-11] MEDS ORDERED: ACETAMINOPHEN 325 MG TAB PO PRN (23:05)
[2022-05-11] MEDS ORDERED: MAG SULF 2000 MG/WATER PREMIX 50 ML IV PRN (23:05)
[2022-05-11] MEDS ORDERED: MAGNESIUM OXIDE 400 MG TAB PO PRN (23:05)
[2022-05-11] MEDS ORDERED: KCL 20 MEQ/WATER INJ PREMIX 200 ML IV PRN (23:05)
[2022-05-11] MEDS ORDERED: HYDROcodone/APAP 5/325 MG 1 TAB TAB PO PRN (23:05)
[2022-05-11 23:06] LABS: BARBITURATE, URINE NEGATIVE ng/ml (NEG <=200); BENZODIAZEPINE, URINE NEGATIVE ng/mL (NEG <=200); CANNABINOID, URINE NEGATIVE ng/mL (NEG <=50); COCAINE, URINE NEGATIVE ng/mL (NEG <=300); OPIATE, URINE NEGATIVE ng/mL (NEG <=2000); PHENCYCLIDINE SCREEN,URINE NEGATIVE ng/mL (NEG <=25)
--- NOTE | 2022-05-11 23:18 | NUR ---
Rekha ariza in [facility] - 05/11/22 at 2319 by MNDAGOPM PUREWIC PLACED
--- NOTE | 2022-05-11 23:43 | NUR ---
PT ADMITED TO TELE.
[2022-05-12] MEDS ORDERED: AZITHROMYCIN 500 MG INJ VIAL IV ONE (00:34)
[2022-05-12] MEDS ORDERED: WATER STERILE 10 ML MC ONE (00:38)
[2022-05-12] MEDS: AZITHROMYCIN 500 MG in DEXTROSE 5% 250 ML IV SCH (00:44)
--- NOTE | 2022-05-12 00:53 | NUR ---
MED RECONCILE AND BELONGINGS COMPLETED
--- NOTE | 2022-05-12 03:46 | NUR ---
PT HAS BEEN INCONT OF STOOL AND URINE. DIAPER PLACED ON PT . PT IS A&OX4.
[2022-05-12] MEDS: MORPHINE SULFATE 4 MG/ML SYR IVP PRN (05:32)
--- NOTE | 2022-05-12 06:06 | NUR ---
CALL OUT TO DR AHUJA ( DR REED) PT HAS BEEN YELLING OUT , PICKING SKIN WITH STRAW AND GENTIALS. YELLING AT STAFF. REQUESTING MEDICATION FOR PT
[2022-05-12] MEDS ORDERED: LORazepam 0.5 MG TAB ONE (06:18)
--- NOTE | 2022-05-12 06:25 | NUR ---
labs at pt bedside
--- NOTE | 2022-05-12 07:23 | NUR ---
Received report from RAMÍREZ Ellis. Assumed care at this time.
[2022-05-12 07:45] LABS: ALBUMIN 1.9 g/dL (3.4-5.0); ANION GAP 9.6 (8-16); CARBON DIOXIDE 24.5 mmol/L (21-32); MAGNESIUM 1.7 mg/dL (1.8-2.4); POTASSIUM 3.1 mmol/L (3.5-5.1); TOTAL BILIRUBIN 0.2 mg/dL (0.0-1.0)
--- NOTE | 2022-05-12 07:59 | NUR ---
Patient will be admitted to care of Dr. Tatum. Admited to TELE. Will go to room 115. Belongings list completed. Report to CRISTAL Pal.
[2022-05-12 08:11] VITALS: BP 94/44
[2022-05-12 08:12] LABS: BASOPHILS % (AUTO) 0.2 % (0.0-2.0); LYMPHOCYTES # (AUTO) 0.5 K/uL (2.0-11.5); LYMPHOCYTES % (AUTO) 16.5 % (20.5-51.1); MEAN CORPUSCULAR HEMOGLOBIN 28 pg (27-31); MEAN CORPUSCULAR HGB CONC 34 g/dL (33-37); MEAN CORPUSCULAR VOLUME 82.5 fL (80-94); MONOCYTES # (AUTO) 0.1 K/uL (0.8-1.0); MONOCYTES % (AUTO) 4.2 % (1.7-9.3); NEUTROPHILS # (AUTO) 2.5 K/uL (1.8-7.7); NEUTROPHILS % (AUTO) 79.1 % (42.2-75.2); PLATELET COUNT (AUTO) 82 K/uL (140-450); RED BLOOD CELL COUNT(AUTO) 2.23 MIL/uL (4.20-6.10); RED CELL DISTRIBUTION WIDTH 21.3 % (11.6-13.7); WHITE BLOOD COUNT (AUTO) 3.1 K/uL (4.8-10.8)
[2022-05-12 08:17] LABS: HEMATOCRIT 18.4 % (36-52); HEMOGLOBIN 6.3 g/dL (12.0-18.0)
[2022-05-12] MEDS: ENOXAPARIN 40 MG/0.4 ML SYR SUBQ SCH (09:00)
--- NOTE | 2022-05-12 09:38 | NUR ---
PATIENT HAS BEEN SCREENED AND CATEGORIZED MODERATE NUTRITION RISK. PATIENT WILL BE SEEN WITHIN 3-5 DAYS OF ADMISSION. REVIEWED BY CARLOS JONAS RD
[2022-05-12 12:00] VITALS: BP 114/62
--- NOTE | 2022-05-12 12:49 | NUR ---
ADMISSION OF A 66 YEAR OLD MALE UNDER THE CARE OF DOCTOR FOR INFLUENZA A AND PNEUMONIA.
[2022-05-12 16:00] VITALS: BP 108/57
--- NOTE | 2022-05-12 17:02 | NUR ---
UNIT 1 PACKED RED BLOOD CELLS TRANSFUSING WELL AT THIS TIME.
[2022-05-12 20:00] VITALS: BP 114/61
--- NOTE | 2022-05-12 20:00 | NUR ---
RECEIVED PT FROM DAY RN FOR CONTINUITY OF CARE. PT AWAKE, ALERT AND ORIENTED X 2. ON 2 L O2 VIA NC, BREATHING EVEN AND UNLABORED. NO S/SX OF DISTRESS NOTED. IV ON L AC G20, SL. PT S/P 1 UNIT BLOOD TRANSFUSION. VITAL SIGNS ARE STABLE. ALL PRECAUTIONS IN PLACE. CALL LIGHT WITHIN REACH. WILL CONTINUE TO MONITOR.
[2022-05-12 20:37] LABS: HEMATOCRIT 23.7 % (36-52); HEMOGLOBIN 7.9 g/dL (12.0-18.0)
[2022-05-12] MEDS: POTASSIUM CHLORIDE 10 MEQ TABER PO PRN (21:20)
[2022-05-12] MEDS: LORazepam 0.5 MG TAB PO PRN (21:23)
--- NOTE | 2022-05-12 22:15 | NUR ---
SCHEDULED MEDICATIONS GIVEN. PT TOLERATED WELL. 2ND UNIT OF PRBC HELD PER DR BENSON BECAUSE HGB AND HCT CAME BACK 7.9 AND 23.7.
[2022-05-13] VITALS: BP 96/55
--- NOTE | 2022-05-13 | NUR ---
SCHEDULE MEDICATIONS GIVEN. PT TOLERATED WELL. WILL CONTINUE TO MONITOR.
[2022-05-13] MEDS: AZITHROMYCIN 500 MG in DEXTROSE 5% 250 ML IV SCH ×2 (00:22→23:44)
--- NOTE | 2022-05-13 01:32 | NUR ---
PT ASLEEP. NO S/SX OF DISTRESS NOTED. CALL LIGHT WITHIN REACH. WILL CONTINUE TO MONITOR.
[2022-05-13 04:00] VITALS: BP 113/63
--- NOTE | 2022-05-13 06:26 | NUR ---
PT IS STABLE. NO ACUTE EVENTS THROUGHOUT THE NIGHT. NO S/SX OF DISTRESS AT THIS MOMENT. ALL NEEDS ATTENDED. ALL PRECAUTIONS IN PLACE. CALL LIGHT WITHIN REACH. WILL CONTINUE TO MONITOR.
[2022-05-13 06:59] LABS: BASOPHILS % (AUTO) 0.5 % (0.0-2.0); EOSINOPHILS % (AUTO) 0.1 % (0.0-4.0); HEMATOCRIT 22.1 % (36-52); HEMOGLOBIN 7.5 g/dL (12.0-18.0); LYMPHOCYTES # (AUTO) 0.7 K/uL (2.0-11.5); MEAN CORPUSCULAR HEMOGLOBIN 28 pg (27-31); MEAN CORPUSCULAR HGB CONC 34 g/dL (33-37); MEAN CORPUSCULAR VOLUME 81.7 fL (80-94); MONOCYTES # (AUTO) 0.2 K/uL (0.8-1.0); NEUTROPHILS # (AUTO) 3.4 K/uL (1.8-7.7); NEUTROPHILS % (AUTO) 79.4 % (42.2-75.2); PLATELET COUNT (AUTO) 82 K/uL (140-450); RED BLOOD CELL COUNT(AUTO) 2.71 MIL/uL (4.20-6.10); RED CELL DISTRIBUTION WIDTH 20.4 % (11.6-13.7); WHITE BLOOD COUNT (AUTO) 4.3 K/uL (4.8-10.8)
[2022-05-13 07:43] LABS: ALBUMIN 1.8 g/dL (3.4-5.0); ANION GAP 7.5 (8-16); CARBON DIOXIDE 29.1 mmol/L (21-32); CREATININE 0.9 mg/dL (0.6-1.3); MAGNESIUM 1.6 mg/dL (1.8-2.4); POTASSIUM 3.6 mmol/L (3.5-5.1); TOTAL BILIRUBIN 0.2 mg/dL (0.0-1.0)
[2022-05-13 08:00] VITALS: BP 113/52
[2022-05-13] MEDS: ENOXAPARIN 40 MG/0.4 ML SYR SUBQ SCH (09:00)
[2022-05-13] MEDS: LORazepam 0.5 MG TAB PO PRN ×2 (11:38→22:26)
[2022-05-13 12:00] VITALS: BP 138/66
[2022-05-13 16:00] VITALS: BP 132/68
--- NOTE | 2022-05-13 20:30 | NUR ---
DOING ROUNDS, PT IN BED SLIGHTLY AGITATED, MUMBLING SOME WORDS. MADE OUT HE ASKED FOR WATER, WAS GIVEN WATER AND MADE COMFORTABLE. NOTED PT COUGHING, COMPLAINED OF PAIN. PAIN MEDS AND ATIVAN 0.5MG GIVEN. PT TOLERATED WELL, NO ASE. NOTED PT WAS RELAXED AFTER AWHILE
[2022-05-13] MEDS: MORPHINE SULFATE 4 MG/ML SYR IVP PRN (22:26)
--- NOTE | 2022-05-13 22:30 | NUR ---
PT GIVEN ABX ROCPHIN IVPB PER ORDER. TOLERATED WELL.
--- NOTE | 2022-05-14 00:20 | NUR ---
PT GIVEN ORDERED ZITHROMAX IVPB, TOLERATED WELL, NO ASE NOTED.
[2022-05-14 01:04] VITALS: BP 125/70
[2022-05-14 04:52] VITALS: BP 113/71
[2022-05-14 06:59] LABS: BASOPHILS % (AUTO) 0.3 % (0.0-2.0); EOSINOPHILS % (AUTO) 0.1 % (0.0-4.0); HEMATOCRIT 23.3 % (36-52); HEMOGLOBIN 7.8 g/dL (12.0-18.0); LYMPHOCYTES # (AUTO) 0.8 K/uL (2.0-11.5); LYMPHOCYTES % (AUTO) 20.9 % (20.5-51.1); MEAN CORPUSCULAR HEMOGLOBIN 28 pg (27-31); MEAN CORPUSCULAR HGB CONC 33 g/dL (33-37); MEAN CORPUSCULAR VOLUME 82.2 fL (80-94); MONOCYTES # (AUTO) 0.2 K/uL (0.8-1.0); MONOCYTES % (AUTO) 6.6 % (1.7-9.3); NEUTROPHILS # (AUTO) 2.7 K/uL (1.8-7.7); NEUTROPHILS % (AUTO) 72.1 % (42.2-75.2); PLATELET COUNT (AUTO) 83 K/uL (140-450); RED BLOOD CELL COUNT(AUTO) 2.84 MIL/uL (4.20-6.10); RED CELL DISTRIBUTION WIDTH 20.1 % (11.6-13.7); WHITE BLOOD COUNT (AUTO) 3.7 K/uL (4.8-10.8)
[2022-05-14 07:26] LABS: ALBUMIN 1.9 g/dL (3.4-5.0); ANION GAP 9.1 (8-16); CARBON DIOXIDE 30.2 mmol/L (21-32); CREATININE 0.9 mg/dL (0.6-1.3); MAGNESIUM 1.4 mg/dL (1.8-2.4); POTASSIUM 3.3 mmol/L (3.5-5.1); TOTAL BILIRUBIN 0.2 mg/dL (0.0-1.0)
--- NOTE | 2022-05-14 07:33 | NUR ---
END OF SHIFT REPORT GIVEN TO JOSÉ AUGUST. PT STABLE, SLEEPING, FACIAL EXPRESSIONS RELAXED AND CALM AND IN NO APPARENT DISTRESS.
--- NOTE | 2022-05-14 07:35 | NUR ---
RECEIVED REPORT FROM INSTRUCTOR PSYCHIATRIC AIDE NURSE, KAYLEE Dixon INSTRUCTOR PSYCHIATRIC AIDE NURSE REPORTS THAT PT IS RESTING AT THIS TIME, NO AGITATION. UPON ASSESSMENT, PT HAS THROWN SHEETS ON FLOOR, WATER JUG ALONG WITH WATER IS ON FLOOR. PT IS VERY AGITATED. CLEANED UP ROOM, REPOSITIONED PT. PT UPSET AT THIS TIME. WILL CONTINUE TO MONITOR.
[2022-05-14 08:00] VITALS: BP 104/65
--- NOTE | 2022-05-14 08:54 | NUR ---
PT. MAXINE WITH LOW BENSON SCALE AT MODERATE TO HIGH RISK, CONTINUE TO FOLLOW PRESSURE INJURY PREVENTION INTERVENTIONS. -POSITIONING: TURN AND REPOSITION PATIENT Q 2H OR SOONER USE PILLOWS TO KEEP BONY PROMINENCES FROM DIRECT CONTACT WITH SURFACES USE REPOSITIONING WEDGES TO PROVIDE 30-DEGREE ANGLE FOR SIDE LYING POSITIONS OFFLOADING OR FOAM DRESSING TO ALL TUBING TO PREVENT MEDICAL DEVICES RELATED PRESSURE INJURY -RE-EVALUATING AND MANAGING INCONTINENCE MONITOR SKIN CONDITION DURING POSITION CHANGE DO NOT MASSAGE REDNESS, BONY PROMINENCES FREQUENT YAMILE-CARE AND PROVIDE BARRIER CREAMS PRN IF SOILING MOISTURE CONTROL BY OFFER BED SILVERIO/URINAL /ABSORBENT PAD TO WICK AND HOLD MOISTURE KEEP SKIN DRY AND PROTECT FROM FRICTION -MANAGE FRICTION/SHEAR/MOBILITY KEEP HOB AT THE LOWEST LEVEL OF ELEVATION NO MORE THAN 30 DEGREE UNLESS OTHERWISE CONTRAINDICATED USE LIFT SHEET OR TRANSFER DEVICE TO MOVE PATIENT AND PREVENT LATERAL SHEER. PROTECT HEELS, ELBOWS BONY PROMINENCES WITH SKIN BERRIES OR FOAM DRESSING IF EXPOSED TO FRICTION OFFLOAD BILATERAL HEELS BY PLACING PILLOWS UNDER CALVES AT ALL TIMES, UNLESS OTHERWISE CONTRAINDICATED -PRESSURE REDISTRIBUTION SURFACE THERAPY MT ISOFLEX MATTRESS -NUTRITION: PLEASE FOLLOW RD RECOMMENDATIONS AND OFFER NUTRITION SUPPLEMENTS IF ORDERED. PLEASE CONTACT WOUND CARE NURSE FOR ANY QUESTION AND CHANGE OF WOUND CONDITION.
[2022-05-14] MEDS: ENOXAPARIN 40 MG/0.4 ML SYR SUBQ SCH (09:00)
--- NOTE | 2022-05-14 09:31 | NUR ---
MEDICATION LOVENOX NOT ADMINISTERED, PT PLT IS 83.
[2022-05-14 12:00] VITALS: BP 116/62
--- NOTE | 2022-05-14 12:32 | NUR ---
DID ROUNDS ON PT. PT HAS PULLED OUT 1 IV ACCESS, YELLING AND STATING "I DONT NEED IT". EDUCATED PT ON BENEFITS/NEEDS OF IV ACCESS. PT CONTINUES TO YELL AND STATE HE DOES NOT NEED IV. PT ALSO UPSET AND HAD A LARGE BOWEL MOVEMENT IN BED AND THREW IT ON THE FLOOR, THEN YELLED AT STAFF "CLEAN THAT SHIT UP, I DIDNT DO IT. ITS NOT FOR ME". STAFF CLEANED UP PT AND ROOM ONCE AGAIN.
[2022-05-14 16:00] VITALS: BP 122/69
[2022-05-14] MEDS ORDERED: AZIT250T3 PO (16:05)
[2022-05-14] MEDS: POTASSIUM CHLORIDE 10 MEQ TABER PO PRN (17:18)
[2022-05-14] MEDS: LORazepam 0.5 MG TAB PO PRN (17:19)
--- NOTE | 2022-05-14 17:25 | NUR ---
PT YELLING AND SCREAMING. STAFF WENT IN TO CHECK ON HIM. PT BEING VERBALLY ABUSIVE TO STAFF. TOLD STAFF "DO WHAT I SAY OR GET THE FUCK OUT OF MY HOUSE".
--- NOTE | 2022-05-14 19:10 | NUR ---
ENDORSED PT TO PROGRAM ARRANGER NURSEKAYLEE. PT IS STABLE.
--- NOTE | 2022-05-14 19:15 | NUR ---
RECEIVED REPORT FROM OUTGOING NURSE. PT RECEIVED EATING HIS DINNER, ASKED FOR JUICE, GIVEN AND ATE 100%. NOTED PT'S ROOM MESSED UP, CALLED HOUSEKEEPING TO ASSIST CLEAN UP.
--- NOTE | 2022-05-14 22:30 | NUR ---
DOING ROUNDS, PT IN BED REQUESTING FOR MORE FOOD. GAVE HIMHOUSE NOURISHMENT, INSERTED A NEW IV LINE AQS PT PULLED HIS IV, HUNG HIS ABX. WELL TOLERATED. PT REQUESTED PAIN MEDS, MORPHINE SPECIFICALLY, REFUSED NORCO.
[2022-05-15] MEDS: AZITHROMYCIN 500 MG in DEXTROSE 5% 250 ML IV SCH (00:10)
[2022-05-15 00:26] VITALS: BP 131/77
[2022-05-15] MEDS: MORPHINE SULFATE 4 MG/ML SYR IVP PRN ×2 (01:05→11:57)
[2022-05-15 04:45] VITALS: BP 138/81
--- NOTE | 2022-05-15 07:26 | NUR ---
PT ENDORSED TO DAY NURSE. PT CLEANED UP, MADE COMFORTABLE, EXPECTING BREAKFAST. PT HAS A NEW PATENT IV LINE SALINE LOCK ON RFA. PT STABLE AT THIS TIME.
[2022-05-15 07:36] LABS: BASOPHILS % (AUTO) 0.5 % (0.0-2.0); EOSINOPHILS % (AUTO) 0.5 % (0.0-4.0); HEMATOCRIT 23.6 % (36-52); HEMOGLOBIN 7.8 g/dL (12.0-18.0); LYMPHOCYTES # (AUTO) 0.8 K/uL (2.0-11.5); LYMPHOCYTES % (AUTO) 21.9 % (20.5-51.1); MEAN CORPUSCULAR HEMOGLOBIN 27 pg (27-31); MEAN CORPUSCULAR HGB CONC 33 g/dL (33-37); MEAN CORPUSCULAR VOLUME 82.2 fL (80-94); MONOCYTES # (AUTO) 0.2 K/uL (0.8-1.0); MONOCYTES % (AUTO) 6.2 % (1.7-9.3); NEUTROPHILS # (AUTO) 2.7 K/uL (1.8-7.7); NEUTROPHILS % (AUTO) 70.9 % (42.2-75.2); PLATELET COUNT (AUTO) 108 K/uL (140-450); RED BLOOD CELL COUNT(AUTO) 2.87 MIL/uL (4.20-6.10); RED CELL DISTRIBUTION WIDTH 20.3 % (11.6-13.7); WHITE BLOOD COUNT (AUTO) 3.8 K/uL (4.8-10.8)
[2022-05-15 08:00] VITALS: BP_SYST 141; BP_SYST 147; BP_DIAS 72; BP_DIAS 84
[2022-05-15 08:04] LABS: ANION GAP 8.4 (8-16); CARBON DIOXIDE 27.5 mmol/L (21-32); CREATININE 0.8 mg/dL (0.6-1.3); MAGNESIUM 1.7 mg/dL (1.8-2.4); POTASSIUM 3.9 mmol/L (3.5-5.1); TOTAL BILIRUBIN 0.1 mg/dL (0.0-1.0)
[2022-05-15] MEDS: ENOXAPARIN 40 MG/0.4 ML SYR SUBQ SCH (09:00)
[2022-05-15 12:00] VITALS: BP 147/84
[2022-05-15 14:17] VITALS: BP 147/84
== END 2022-05-15 16:44 | disposition home or self-care (01) | DRG 720 ==
LOC: MED 18:48 → OBSVTOIN 23:06 → MTU 23:06
PROVIDERS: ADMIT Hospitalist; ATTEND Hospitalist
PROC: 30233N1 Transfusion of Nonautologous Red Blood Cells into Peripheral Vein, Percutaneous Approach (ICD-10-PCS; principal; 2022-05-12)
DX: A41.9 Sepsis, unspecified organism (principal); N17.0 Acute kidney failure with tubular necrosis; E44.0 Moderate protein-calorie malnutrition; D62 Acute posthemorrhagic anemia; E83.51 Hypocalcemia; E87.1 Hypo-osmolality and hyponatremia; E88.09 Other disorders of plasma-protein metabolism, not elsewhere classified; J12.9 Viral pneumonia, unspecified; J10.1 Influenza due to other identified influenza virus with other respiratory manifestations; E87.6 Hypokalemia; E83.42 Hypomagnesemia; E11.9 Type 2 diabetes mellitus without complications; Z68.24 Body mass index [BMI] 24.0-24.9, adult; G40.909 Epilepsy, unspecified, not intractable, without status epilepticus; F15.10 Other stimulant abuse, uncomplicated; Z20.822 Contact with and (suspected) exposure to COVID-19; I10 Essential (primary) hypertension
CPT/HCPCS: 36415; 71045; 80053; 80305; 81001; 83605; 83735; 84484; 85018; 85025; 85610; 85730; 86886; 86900; 86901; 86920; 87040; 87081; 96361; 96365; 99291; G0482; J0456; J0696; J1650; J2270; J7060; P9016; Q0092; Q0163; Q9967

== ENCOUNTER 2022-07-06 13:59 | Inpatient (IN) | payer OTHER ==
[~2022-07-06] VITALS: Ht 170.2 cm; Wt 64.4 kg
[~2022-07-06 13:59] MED LIST changes: +AZIT250T3 PO; -CEPH-588 PO; -IBUP-2213 PO; -KEP500 PO; -OMEP-278 PO; -PHEN100C3 PO
[2022-07-06 14:05] VITALS: BP 132/85
--- NOTE | 2022-07-06 14:06 | NUR ---
PATIENT BIBA TO BED 10.
--- NOTE | 2022-07-06 14:10 | NUR ---
VERBAL ORDER GIVEN BY DR. NUÑEZ TO APPLY BEAR DINA AT THIS TIME.
--- NOTE | 2022-07-06 14:14 | NUR ---
DR. NUÑEZ EVALUATING PATIENT AT BEDSIDE.
--- NOTE | 2022-07-06 14:47 | NUR ---
ABG RESULTS GIVEN TO DR NUÑEZ. PER DR UNGER TITRATE FIO2 TO 2L NC. NO SIGNS OF RESP DISTRESS WILL CONTINUE TO MONITOR.
[2022-07-06] MEDS ORDERED: NICARDIPINE HYDROCHLORIDE 25 MG in NACL 0.9% 240 ML IV ONE (14:55)
[2022-07-06] MEDS ORDERED: NACL 0.9% 1,000 ML IV ONE ×2 (14:55→16:45)
[2022-07-06] MEDS ORDERED: levETIRAcetam 1,000 MG in NACL 0.9% 100 ML IV ONE (14:55)
--- NOTE | 2022-07-06 14:55 | NUR ---
PATIENT PLACED ON PORTABLE ADULT AND PEDIATRIC NEUROLOGIST, ACCOMPANIED MANAGER CALL CENTER TO RADIOLOGY FOR CT HEAD.
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
--- NOTE | 2022-07-06 15:09 | NUR ---
FREDERIC SWAB COLLECTED AND WALKED TO LAB
[2022-07-06 15:20] LABS: BASOPHILS % (AUTO) 0.1 % (0.0-2.0); EOSINOPHILS % (AUTO) 0.1 % (0.0-4.0); HEMOGLOBIN 9.4 g/dL (12.0-18.0); LYMPHOCYTES # (AUTO) 0.4 K/uL (2.0-11.5); LYMPHOCYTES % (AUTO) 7.9 % (20.5-51.1); MEAN CORPUSCULAR HEMOGLOBIN 28 pg (27-31); MEAN CORPUSCULAR HGB CONC 32 g/dL (33-37); MEAN CORPUSCULAR VOLUME 85.4 fL (80-94); MONOCYTES # (AUTO) 0.1 K/uL (0.8-1.0); MONOCYTES % (AUTO) 2.2 % (1.7-9.3); NEUTROPHILS # (AUTO) 4.1 K/uL (1.8-7.7); NEUTROPHILS % (AUTO) 89.7 % (42.2-75.2); PLATELET COUNT (AUTO) 86 K/uL (140-450); RED CELL DISTRIBUTION WIDTH 23.8 % (11.6-13.7); WHITE BLOOD COUNT (AUTO) 4.6 K/uL (4.8-10.8)
--- NOTE | 2022-07-06 15:55 | NUR ---
# 14 FR STRAIGHT catheter INSERTED utilizing sterile technique. Immediate return of 30 ml YELLOW urine noted. Urine sample collected and sent to lab. Pt tolerated procedure WELL.
[2022-07-06 16:01] LABS: ALBUMIN 2.4 g/dL (3.4-5.0); ASPARTATE AMINOTRANSFERASE 83 U/L (15-37); CARBON DIOXIDE 31.5 mmol/L (21-32); CHLORIDE 101 mmol/L (98-107); CREATININE 0.7 mg/dL (0.6-1.3); GFR ARICAN-AMERICAN 145 mL/min (>90); GLUCOSE 118 mg/dL (74-106); LIPASE 236 U/L (73-393); POTASSIUM 3.5 mmol/L (3.5-5.1); SODIUM SERUM 136 mmol/L (136-145); TOTAL BILIRUBIN 0.2 mg/dL (0.0-1.0); UREA NITROGEN, BLOOD 22 mg/dL (7-18)
--- NOTE | 2022-07-06 16:12 | NUR ---
DR. NUÑEZ REASSESSING PATIENT BEDSIDE
--- NOTE | 2022-07-06 16:39 | NUR ---
FRESH DIAPER APPLIED TO PT AND CLEAN SHEETS PLACED ON BED. PT REPOSITIONED FOR COMFORT. BEAR HUGGER AND BLANKETS APPLIED TO PT.
[2022-07-06 16:41] LABS: APPEARANCE,URINE CLEAR (CLEAR); BILIRUBIN,URINE NEGATIVE (NEGATIVE); BLOOD, URINE TRACE-I (NEGATIVE); COLOR,URINE YELLOW (YELLOW); LEUKOCYTE ESTERASE ,URINE NEGATIVE (NEGATIVE); NITRITE, URINE NEGATIVE (NEGATIVE); UGLUCOSE NEGATIVE (NEGATIVE)
[2022-07-06 16:45] LABS: RBC,URINE 0-5 /HPF (0-5); WBC,URINE NONE SEEN /HPF (0-5)
[2022-07-06 16:55] LABS: BARBITURATE, URINE NEGATIVE ng/ml (NEG <=200); BENZODIAZEPINE, URINE NEGATIVE ng/mL (NEG <=200); CANNABINOID, URINE NEGATIVE ng/mL (NEG <=50); COCAINE, URINE NEGATIVE ng/mL (NEG <=300); OPIATE, URINE NEGATIVE ng/mL (NEG <=2000); PHENCYCLIDINE SCREEN,URINE NEGATIVE ng/mL (NEG <=25)
[2022-07-06] MEDS ORDERED: ONDANSETRON 4 MG/2 ML VIAL IVP PRN (17:45)
[2022-07-06] MEDS: NACL 0.9% 1,000 ML IV SCH (17:45)
[2022-07-06] MEDS ORDERED: POTASSIUM CHLORIDE 10 MEQ TABER PO PRN (17:45)
[2022-07-06] MEDS ORDERED: MAG SULF 2000 MG/WATER PREMIX 50 ML IV PRN (17:45)
[2022-07-06] MEDS ORDERED: ACETAMINOPHEN 325 MG TAB PO PRN (17:45)
[2022-07-06] MEDS ORDERED: MORPHINE SULFATE 4 MG/ML SYR IVP PRN (17:45)
[2022-07-06] MEDS ORDERED: HYDROcodone/APAP 5/325 MG 1 TAB TAB PO PRN (17:45)
[2022-07-06] MEDS ORDERED: MAGNESIUM OXIDE 400 MG TAB PO PRN (17:45)
--- NOTE | 2022-07-06 18:00 | NUR ---
PATIENT SITTING UP WITH EYES OPEN, WHEN ASKED QUESTIONS PATIENT MUMBLING, PATIENT ON BEDSIDE MONITOR, ALL NEEDS MET AT THIS TIME.
[2022-07-06] MEDS ORDERED: PIPERACILLIN/TAZOBACTAM 3.375 GM VIAL IV ONE (18:20)
[2022-07-06 18:26] LABS: FREE T4 (FREE THYROXINE) 0.9 ng/dL (0.76-1.46); THYROID STIMULATING HORMONE 4.97 uIU/mL (0.34-3.74)
[2022-07-06] MEDS: PIPERACILLIN/TAZOBACTAM 3.375 GM in DEXTROSE 5% 50 ML IV SCH (18:39)
--- NOTE | 2022-07-06 19:12 | NUR ---
BELONGINGS LIST DONE.
--- NOTE | 2022-07-06 19:21 | NUR ---
[facility]; PAGED FOR RT
--- NOTE | 2022-07-06 19:23 | NUR ---
Pt report given to MAY RN. Transfer of care at this time.
--- NOTE | 2022-07-06 19:28 | NUR ---
REPEAT ABG OBTAINED PT CURRENTLY 6LNC (44%) RESULTS ARE FOLLOWS... PH ..... 7.468 CO2 .... 23.4 HCO3 .. 16.6 BE ...... -6 PO2 .... 59.[address] LARA - PLACE PT ON HFNC AND TITRATE TOLERATED
[2022-07-06 19:49] VITALS: BP 99/58
--- NOTE | 2022-07-06 20:19 | NUR ---
Patient will be admitted to care of . Admited to TELE. Will go to room 107A. Belongings list completed. Report to CRISTAL Cartwright.
--- NOTE | 2022-07-06 20:45 | NUR ---
PT WAS ADMITTED TO [facility] DEPARTMENT FROM ER WITH DX OF SEPSIS, UNSPECIFIED ORGANISM. PT IS AOX1 AND BEDBOUND. PT IS ON HI-FLOW 40L/MIN WITH 45% O2 AND PT IS ON NPO. PT HAS IV ON LEFT FOREARM GAUGE 18 AND RIGHT FOREARM GAUGE 20 RUNNING WITH NS AT 80ML/HR. ALL SEIZURE AND SAFETY PRECAUTION WAS IMPLEMENTED. BED IN LOW POSITION, BED WHEELS ON LOCKED AND CALL LIGHT WITHIN REACH.
--- NOTE | 2022-07-06 21:00 | NUR ---
PAGESuzie AND RECEIVED A CALL FROM DR. MCCARTY DUE TO PT'S BP IS 68/35. DR. MCCARTY ORDER TO TRANSFER THE PT TO ICU. ORDER WAS MADE AND CARRIED OUT.
[2022-07-06] MEDS: HYDROCORTISONE NA SUCC 100 MG/2 ML VIAL IV SCH (21:30)
--- NOTE | 2022-07-06 21:30 | NUR ---
PT WAS TRANSFERRED TO ICU. ENDORSED PT TO ICU NURSE FOR CONTINUITY OF CARE.
[2022-07-06 21:51] VITALS: BP 69/46
[2022-07-06 22:00] VITALS: BP 106/51
[2022-07-06] MEDS ORDERED: NOREPINEPHRINE 4 MG/4 ML VIAL IV ONE (22:00)
--- NOTE | 2022-07-06 22:00 | NUR ---
RECEIVED PATIENT FROM TELEMETRY UNIT AND REPORT RECEIVED .PATIENT WAS NOTED TO BE VERY AGITATED AND RESTLESS.RESTRAINTS ORDER OBTAINED. HALDOL 2MG IM RENDERED PRECEDEX AND LEVOPHED INITIATED PER PROTOCOL . ON HIGH FLOW 40L AND 45% FIO2 WITH O2 SAT AT 96%.LUNG SOUNDS WITH RHONCHI THROUGHOUT.ABDOMEN ROUND WITH +BS X4 QUADS.ALL PULSES PRESENT AND PALPABLE .PATIENT IS INCONTINENT OF BOWEL AND BLADDER PERIPHERAL IV ON BOTH ARMS PATENT AND INTACT AND BENIGN.WILL CONTINUE TO PROCEED WITH CARE.
[2022-07-06] MEDS: NOREPINEPHRINE 4 MG in DEXTROSE 5% 250 ML IV PRN (22:33)
[2022-07-06] MEDS ORDERED: DEXMEDETOMIDINE HCL 100 MCG/ML 2 ML VIAL IV ONE (22:57)
[2022-07-06] MEDS ORDERED: HALOPERIDOL IM 5 MG/ML VIAL ONE (22:57)
[2022-07-06 23:00] VITALS: BP 127/71
[2022-07-06] MEDS ORDERED: HALOPERIDOL IM 5 MG/ML VIAL IM SCH (23:10)
[2022-07-07] VITALS (29 sets, daily range): BP systolic 87–140; BP diastolic 47–80
[2022-07-07] MEDS: DEXMEDETOMIDINE HCL 400 MCG in NACL 0.9% 96 ML IV PRN ×2 (00:43→21:38)
[2022-07-07] MEDS ORDERED: PIPERACILLIN/TAZOBACTAM 3.375 GM VIAL IV ONE ×2 (00:43→05:04)
[2022-07-07] MEDS: PIPERACILLIN/TAZOBACTAM 3.375 GM in DEXTROSE 5% 50 ML IV SCH ×5 (00:48→23:48)
--- NOTE | 2022-07-07 01:54 | NUR ---
PT PLACED ON NIV 04/06 f14 25% W/ SPO2 99% 10 MIN POST INITIATION PT PLACED ON NIV AND REMOVED FROM HFNC DUE TO INR WOB PT WAS BREATHING f40-60 W/ SOMEWHAT SHALLOW BREATHS ALONG W/ RETRACTIONS AFTER INITIATION WOB APPEARED TO IMPROVE AND PT APPEARS MORE COMFORTABLE BIPAP PLUGGED RED OUTLET W/ ALARMS ON AND AUDIBLE HF PLACED ON STDBY AT BEDSIDE WILL CONTINUE TO MONITOR
[2022-07-07] MEDS ORDERED: NOREPINEPHRINE 4 MG/4 ML VIAL IV ONE (03:12)
[2022-07-07] MEDS: NOREPINEPHRINE 4 MG in DEXTROSE 5% 250 ML IV PRN ×2 (04:39→23:52)
[2022-07-07] MEDS: HYDROCORTISONE NA SUCC 100 MG/2 ML VIAL IV SCH ×3 (05:03→21:36)
[2022-07-07 05:28] LABS: BASOPHILS % (AUTO) 0.2 % (0.0-2.0); HEMATOCRIT 24.6 % (36-52); HEMOGLOBIN 7.9 g/dL (12.0-18.0); LYMPHOCYTES # (AUTO) 0.1 K/uL (2.0-11.5); LYMPHOCYTES % (AUTO) 2.2 % (20.5-51.1); MEAN CORPUSCULAR HEMOGLOBIN 27 pg (27-31); MEAN CORPUSCULAR HGB CONC 32 g/dL (33-37); MEAN CORPUSCULAR VOLUME 84.5 fL (80-94); MONOCYTES # (AUTO) 0.2 K/uL (0.8-1.0); MONOCYTES % (AUTO) 3.5 % (1.7-9.3); NEUTROPHILS # (AUTO) 4.5 K/uL (1.8-7.7); NEUTROPHILS % (AUTO) 94.1 % (42.2-75.2); PLATELET COUNT (AUTO) 69 K/uL (140-450); RED BLOOD CELL COUNT(AUTO) 2.91 MIL/uL (4.20-6.10); RED CELL DISTRIBUTION WIDTH 23.4 % (11.6-13.7); WHITE BLOOD COUNT (AUTO) 4.8 K/uL (4.8-10.8)
[2022-07-07] MEDS: NACL 0.9% 1,000 ML IV SCH (06:15)
[2022-07-07 06:19] LABS: CARBON DIOXIDE 23.3 mmol/L (21-32); CREATININE 1.4 mg/dL (0.6-1.3); POTASSIUM 4.3 mmol/L (3.5-5.1)
--- NOTE | 2022-07-07 07:00 | NUR ---
RECEIVED PT ON V60 12/6,F14,25%. PT SATURATION 96%. BREATH SOUNDS ARE CLEAR/DIMINISHED. PT WAS TIRED BUT DID RESPOND TO OPENING HIS EYES. WILL CONTINUE TO MONITOR.
--- NOTE | 2022-07-07 07:30 | NUR ---
RECEIVED PT. FROM CLINICAL QUALITY ANALYST. ON BIPAP 04/06 RATE 14, FIO2 25%. SINUS RHYTHM ON THE MONITOR. PERIPHERAL IVS INFUSING PRECEDEX 0.2 MCG/KG/HR, LEVOPHED 10 MCG/MIN AND NS 80MKL/HR. ON BILATERAL SOFT WRIST RESTRAINT AND SITE NO S/S OF POOR CIRCULATION. NO S/S OF INJURY. CALL LIGHT WITHIN REACH. REPOSITIONED AND PLACED COMFORTABLY IN BED. PROVIDED SAFE AND QUIET ENVIRONMENT. NO S/S OF PAIN AND WILL CONTINUE TO MONITOR.
--- NOTE | 2022-07-07 13:30 | NUR ---
SEEN BY DR PINEDA, ORDERS NOTED AND CARRIED OUT
--- NOTE | 2022-07-07 13:55 | NUR ---
DC PLANNING PT CURRENTLY ON BIPAP MACHINE THEREFORE, SW OUTREACHED TO PTS EMERGENCY CONTACT, CHARLES GARCIA, TO GATHER COLLATERAL INFORMATION. PASTOR NORMAN STRUGGLED TO RECALL PT AND REPORTS THAT HE MAY HAVE BROUGHT PT IN DURING A PRIOR ADMISSION AND PT DID NOT HAVE AN EMERGENCY CONTACT THEREFORE WAS PLACED EC. SW TO ATTEMPT TO MEET WITH PT ON 07/08 Addendum: 07/08/22 at 1327 by Kris COATS SW REQUESTED NURSE CALL SW IF/WHEN PT HAS VISITORS. Addendum: 07/09/22 at 1434 by Kris Pride ATTEMPTED TO MEET PT AT BEDSIDE TO COMPLETE ASSESSMENT HOWEVER, PT WAS ONLY ABLE TO PROVIDE A LIMITED AMOUNT OF INFORMATION, HE WAS FALLING IN AND OUT OF SLEEP. PT WAS ABLE TO PROVIDE CONTACT INFO FOR HIS BROTHER ALEC, AND PROVIDED SW WITH PERMISSION TO CALL AND NOTIFY HIM OF HIS ADMISSION. OUTREACHED TO ALEC WHO REPORTS BEING AT WORK AND WAS ABLE TO PROVIDE LIMITED INFORMATION. ALEC REPORTS PATIENT IS CHRONICALLY HOMELESS AND IS HOMELESS ON HIS OWN ACCORD. ALEC REPORTS PT HAS STRUGGLED WITH ADDICTION MOST OF HIS LIFE. ALEC REPORTS SEVERAL ATTEMPTS IN GETTING PT TO PARTICIPATE IN PROGRAMS HOWEVER PT STRUGGLES TO STAY LONG ENOUGH TO COMPLETE. PT IS REPORTED TO HAVE RECENTLY BEEN PLACED IN SNF " A COUPLE MONTHS AGO" HOWEVER, PT ELOPED FROM FACILITY. ALEC REPORTS HE WILL CALL HOSPITAL FOR UPDATE ON PT AND WILL CALL HIS SISTER TO NOTIFY HER OF PTS ADMISSION.
--- NOTE | 2022-07-07 14:06 | NUR ---
PATIENT HAS BEEN SCREENED AND CATEGORIZED HIGH NUTRITION RISK. PATIENT WILL BE SEEN WITHIN 1-2 DAYS OF ADMISSION. REVIEWED BY CARLOS JONAS RD
[2022-07-07] MEDS ORDERED: MAG SULF 2000 MG/WATER PREMIX 50 ML IV ONE (15:50)
[2022-07-07] MEDS ORDERED: FUROSEMIDE 100 MG in DEXTROSE 5% 100 ML IV SCH (16:00)
[2022-07-07] MEDS: FUROSEMIDE 20 MG/2 ML VIAL IVP SCH ×2 (16:21→21:36)
--- NOTE | 2022-07-07 16:21 | NUR ---
seen and examined by Dr Lepe, orders noted
--- NOTE | 2022-07-07 18:30 | NUR ---
CATY PICC INSERTED BY CORTNEY PICC NURSE, PLACEMENT CONFIRMED BY CXR
[2022-07-07] MEDS: MIDODRINE 5 MG TAB PO SCH (19:00)
--- NOTE | 2022-07-07 20:14 | NUR ---
rECEIVED RPORT FROM dAY SHIFT rn, pATIENT IS AOX0, SEDATED, COMFORTABLE . HE IS ON PRECEDEX 0.3, STARTED LEOVO 2MCG DUE TO BP DROPPED TO 84/28, MAP63. TEXT IPMG DR. GIBBONS TO REQUIESTED A MOTT INSERTION.
--- NOTE | 2022-07-07 22:41 | NUR ---
iNSERTED A 16 FC , patient tolerated well. Addendum: 07/07/22 at 2244 by Agency 05 CRISTAL RN Amended: Links added.
[2022-07-08] VITALS (27 sets, daily range): BP systolic 90–127; BP diastolic 30–81
[2022-07-08] MEDS: HYDROCORTISONE NA SUCC 100 MG/2 ML VIAL IV SCH ×3 (05:41→20:25)
[2022-07-08] MEDS: PIPERACILLIN/TAZOBACTAM 3.375 GM in DEXTROSE 5% 50 ML IV SCH ×4 (05:41→23:06)
[2022-07-08 06:06] LABS: PROTHROMBIN TIME 11.1 secs (10.8-13.4)
[2022-07-08 06:09] LABS: HEMATOCRIT 24.2 % (36-52); HEMOGLOBIN 7.8 g/dL (12.0-18.0); LYMPHOCYTES # (AUTO) 0.3 K/uL (2.0-11.5); LYMPHOCYTES % (AUTO) 4.6 % (20.5-51.1); MEAN CORPUSCULAR HEMOGLOBIN 27 pg (27-31); MEAN CORPUSCULAR HGB CONC 32 g/dL (33-37); MEAN CORPUSCULAR VOLUME 85.5 fL (80-94); MONOCYTES # (AUTO) 0.1 K/uL (0.8-1.0); MONOCYTES % (AUTO) 1.8 % (1.7-9.3); NEUTROPHILS # (AUTO) 6.5 K/uL (1.8-7.7); NEUTROPHILS % (AUTO) 93.6 % (42.2-75.2); PLATELET COUNT (AUTO) 58 K/uL (140-450); RED BLOOD CELL COUNT(AUTO) 2.83 MIL/uL (4.20-6.10); RED CELL DISTRIBUTION WIDTH 23.9 % (11.6-13.7); WHITE BLOOD COUNT (AUTO) 6.9 K/uL (4.8-10.8)
[2022-07-08] MEDS: MIDODRINE 5 MG TAB PO SCH ×3 (06:14→18:22)
[2022-07-08 06:22] LABS: ANION GAP 12.6 (8-16); CREATININE 1.7 mg/dL (0.6-1.3); POTASSIUM 3.6 mmol/L (3.5-5.1)
--- NOTE | 2022-07-08 07:00 | NUR ---
RECEIVED PT ON BIPAP 12/,F14,21%. ALARMS ARE SET AND AUDIBLE. SATURATION 96%. BREATH SOUNDS COARSE WITH EXPIRATORY WHEEZE. WILL CONTINUE TO MONITOR.
--- NOTE | 2022-07-08 07:17 | NUR ---
patient has been stable with luis m at 4 mcg, inserted a [employer]ey catheter output 2400ml.
[2022-07-08 08:12] LABS: FIBRINOGEN > 500 mg/dL (200-400)
[2022-07-08] MEDS: PANTOPRAZOLE 40 MG INJ VIAL IVP SCH (09:00)
[2022-07-08] MEDS: FUROSEMIDE 20 MG/2 ML VIAL IVP SCH ×2 (09:00→20:26)
[2022-07-08] MEDS ORDERED: ATROPINE 1 MG/10 ML SYR IVP PRN (11:30)
--- NOTE | 2022-07-08 12:00 | NUR ---
BIPAP ON STANDBY. PT CURRENTLY ON HFNC 30L,28%,37DEGREE. RESPIRATORY RATE 16, BLOOD PRESSURE IS STABLE. SATURATION 98%. WILL CONTINUE TO MONITOR.
--- NOTE | 2022-07-08 13:49 | NUR ---
ATROPINE GIVEN FOR HR DIPPING DOWN TO 39
--- NOTE | 2022-07-08 16:15 | NUR ---
ST AT BEDSIDE TO ASSESS PT. OK FOR MECHANICAL SOFT GROUND DIET WITH NECTAR THICK LIQUID.
--- NOTE | 2022-07-08 16:38 | NUR ---
07/08/22 RD INITIAL ASSESSMENT COMPLETED PLEASE REFER TO NUTRITION ASSESSMENT UNDER CARE ACTIVITY FOR ESTIMATED NUTRITIONAL NEEDS. 1. WHEN/IF MEDICALLY APPROPRIATE TO BEGIN PO DIET, RECOMMEND CCHO 60 GM DIET WITH MECHANICAL SOFT/GROUND TEXTURE AND NECTAR THICK LIQUIDS PER ST SWALLOW EVAL RECOMMENDATION TOLERATED 2. MONITOR PO INTAKE, GI SYMPTOMS, AND NUTRITION RELATED LAB VALUES 3. RD TO FOLLOW-UP 3-5 DAYS, MODERATE RISK REVIEWED BY CARLOS JONAS RD
--- NOTE | 2022-07-08 17:29 | NUR ---
LOWERED SETTING ON HFNC TO 21L, 28%, 37 DEGREE. SATURATION IS IN THE HIGH 90S. CLEAR BREATH SOUNDS. PT IS ALERT AND WILL TALK WITH YOU. NO DISTRESS NOTED.EQUAL CHEST RISE, STRONG COUGH.
--- NOTE | 2022-07-08 18:58 | NUR ---
RECEIVED REPORT FROM AM SHIFT. PATIENT WAS SEEN AND ASSESSED. PATIENT IS AWAKE AND ALERT AT THIS TIME. PATIENT HAD REMOVED HFNC AND CURRENTLY ON ROOM AIR WITH SPO2 OF 98%. PATIENT IS IN NO RESPIRATORY DISTRESS AT THIS TIME. HFNC PLACED ON STAND-BY. BILATERAL BREATH SOUNDS ON AUSCULTATION; UPPER LOBES: CLEAR/DIMINISHED LOWER LOBES: DIMINISHED WILL CONTINUE TO MONITOR PATIENT.
--- NOTE | 2022-07-08 20:00 | NUR ---
RECEIVED PATIENT AWAKE,ALERT AND ORIENTED.AFEBRILE.DENIES ANY PAIN AND DISCOMFORT AT THIS TIME. SR/SB ON THE MONITOR.HR 77.ON ROOM AIR WITH O2 SAT AT 99%ABDOMEN ROUND ,SOFT AND NON TENDER WITH + BS X4 QUADS.HAD 1BM NOTED ALL PULSES PRESENT AND PALPABLE.IV LINES PATENT AND INTACT.WILL CONTINUE TO PROCEED WITH CARE PLAN.
[2022-07-09] VITALS (9 sets, daily range): BP systolic 106–131; BP diastolic 46–80
[2022-07-09] MEDS: PIPERACILLIN/TAZOBACTAM 3.375 GM in DEXTROSE 5% 50 ML IV SCH ×4 (05:29→23:30)
[2022-07-09] MEDS: HYDROCORTISONE NA SUCC 100 MG/2 ML VIAL IV SCH ×3 (05:30→21:38)
[2022-07-09 05:56] LABS: BASOPHILS % (AUTO) 0.1 % (0.0-2.0); HEMATOCRIT 23.2 % (36-52); HEMOGLOBIN 7.7 g/dL (12.0-18.0); LYMPHOCYTES # (AUTO) 0.3 K/uL (2.0-11.5); LYMPHOCYTES % (AUTO) 6.7 % (20.5-51.1); MEAN CORPUSCULAR HEMOGLOBIN 28 pg (27-31); MEAN CORPUSCULAR HGB CONC 33 g/dL (33-37); MEAN CORPUSCULAR VOLUME 82.9 fL (80-94); MONOCYTES # (AUTO) 0.1 K/uL (0.8-1.0); MONOCYTES % (AUTO) 2.3 % (1.7-9.3); NEUTROPHILS # (AUTO) 4.4 K/uL (1.8-7.7); NEUTROPHILS % (AUTO) 90.9 % (42.2-75.2); PLATELET COUNT (AUTO) 50 K/uL (140-450); RED CELL DISTRIBUTION WIDTH 23.6 % (11.6-13.7); WHITE BLOOD COUNT (AUTO) 4.8 K/uL (4.8-10.8)
[2022-07-09] MEDS: MIDODRINE 5 MG TAB PO SCH ×3 (06:04→19:07)
[2022-07-09 06:32] LABS: ANION GAP 8.3 (8-16); CARBON DIOXIDE 28.9 mmol/L (21-32); CREATININE 1.2 mg/dL (0.6-1.3); POTASSIUM 3.2 mmol/L (3.5-5.1)
[2022-07-09] MEDS ORDERED: diphenhydrAMINE 50 MG/ML VIAL IVP SCH (07:18)
--- NOTE | 2022-07-09 08:00 | NUR ---
RECEIVED PATIENT RESTING COMFORTABLY IN BED, NOT IN ANY FORM OF DISTRESS, ON RA TOLERATING WELL. PLAN OF CARE DISCUSSED WIT PATIENT. VERBALIZED UNDERSTANDING. WILL CONTINUE TO MONITOR.
[2022-07-09] MEDS: PANTOPRAZOLE 40 MG INJ VIAL IVP SCH (08:02)
[2022-07-09] MEDS: FUROSEMIDE 20 MG/2 ML VIAL IVP SCH ×2 (08:02→21:38)
[2022-07-09] MEDS: KCL 20 MEQ IN 100 mL PREMIX 200 ML IV PRN (10:22)
--- NOTE | 2022-07-09 10:23 | NUR ---
PT SATING 97% ON ROOM AIR, HIGH FLOW NOT NEEDED.
[2022-07-09] MEDS: LACTULOSE 20 GM/30 ML UDC PO SCH ×2 (14:20→21:18)
--- NOTE | 2022-07-09 14:30 | NUR ---
PATIENT TRANSPORTED FROM ICU TO TELE FLOOR. NOT IN ANY FORM OF DISTRESS. WILL CONTINUE PLAN OF CARE.
[2022-07-09] MEDS: VITAMIN A/VITAMIN D OINT 113 GM TUBE TP SCH ×2 (14:45→21:23)
[2022-07-09] MEDS ORDERED: POTASSIUM CHLORIDE 10 MEQ TABER PO SCH (15:00)
--- NOTE | 2022-07-09 15:26 | NUR ---
DC PLANNING ASSESSMENT COMPLETE PLEASE REFER TO ASSESSMENT FOR DETAILS ATTEMPTED TO MEET PT AT BEDSIDE TO COMPLETE ASSESSMENT HOWEVER, PT WAS ONLY ABLE TO PROVIDE A LIMITED AMOUNT OF INFORMATION, HE WAS FALLING IN AND OUT OF SLEEP. PT WAS ABLE TO PROVIDE CONTACT INFO FOR HIS BROTHER ALEC, AND PROVIDED SW WITH PERMISSION TO CALL AND NOTIFY HIM OF HIS ADMISSION. OUTREACHED TO ALEC WHO REPORTS BEING AT WORK AND WAS ABLE TO PROVIDE LIMITED INFORMATION. ALEC REPORTS PATIENT IS CHRONICALLY HOMELESS AND IS HOMELESS ON HIS OWN ACCORD. ALEC REPORTS PT HAS STRUGGLED WITH ADDICTION MOST OF HIS LIFE. ALEC REPORTS SEVERAL ATTEMPTS IN GETTING PT TO PARTICIPATE IN PROGRAMS HOWEVER PT STRUGGLES TO STAY LONG ENOUGH TO COMPLETE. PT IS REPORTED TO HAVE RECENTLY BEEN PLACED IN SNF " A COUPLE MONTHS AGO" HOWEVER, PT ELOPED FROM FACILITY. ALEC REPORTS HE WILL CALL HOSPITAL FOR UPDATE ON PT AND WILL CALL HIS SISTER TO NOTIFY HER OF PTS ADMISSION. Addendum: 07/09/22 at 1528 by Kris COATS Amended: Links added.
--- NOTE | 2022-07-09 16:12 | NUR ---
P.T. NOTES P.T. EVAL COMPLETED; REFER TO EVAL FOR DETAILS.
--- NOTE | 2022-07-09 19:20 | NUR ---
RECEIVED REPORT FROM CRISTAL KILPATRICK FOR CONTINUITY OF CARE. PT Addendum: 07/09/22 at 2248 by Bud Leavitt LVN PT SLEEPING, FACE COVERED WITH BLANKETS. EASILY AROUSABLE BY VERBAL STIMULI. RESPIRATIONS EVEN AND UNLABORED ON RA. NO DISTRESS NOTED. NO SIGNS OF PAIN. ON MONOTYPE OPERATOR. MOTT CATHETER IN PLACE, DRAINING TO GRAVITY. INITIAL ASSESSMENT DONE. POC DISCUSSED WITH PT AND CRISTAL MARTINEZ. CALL LIGHT WITHIN REACH. SAFETY PRECAUTIONS IN PLACE.
--- NOTE | 2022-07-09 20:00 | NUR ---
Patient's Plan of Care was discussed and reviewed with [place] GUIDE: ELY KEY
--- NOTE | 2022-07-09 21:23 | NUR ---
ADMINISTERED DUE MEDS. PT TOLERATED WELL.
[2022-07-10] VITALS: BP 117/86
[2022-07-10] MEDS: LORazepam 1 MG TAB PO PRN ×2 (01:33→23:40)
--- NOTE | 2022-07-10 01:34 | NUR ---
PT WAS AGITATED. WANTED TO GET OUT OF BED AND SMOKE. PT WAS RE-ORIENTED TO PLACE. PT STATED THAT HE KNEW THAT HE'S IN THE HOSPITAL, HE KNEW HIS RIGHTS AND HE JUST WANTED TO SMOKE. PT WAS ASKING FOR HER CLOTHES, GO OUT AND SMOKE. CALLED SECURITY. PRN MED FOR AGITATION GIVEN. V/S WITHIN NORMAL LIMITS.
[2022-07-10 04:00] VITALS: BP 143/89
[2022-07-10] MEDS: HYDROCORTISONE NA SUCC 100 MG/2 ML VIAL IV SCH ×3 (04:27→22:06)
[2022-07-10] MEDS: LACTULOSE 20 GM/30 ML UDC PO SCH ×3 (04:46→20:41)
--- NOTE | 2022-07-10 05:31 | NUR ---
DID MORNING CARE. PT TOLERATED WELL. DRAINED 1800CC OF CLEAR YELLOW URINE. NO DISTRESS NOTED. NO COMPLAINTS OF PAIN AND SOB. PT WENT BACK TO SLEEP.
[2022-07-10] MEDS: PIPERACILLIN/TAZOBACTAM 3.375 GM in DEXTROSE 5% 50 ML IV SCH ×3 (05:33→17:34)
[2022-07-10] MEDS: MIDODRINE 5 MG TAB PO SCH ×3 (06:27→17:35)
[2022-07-10 07:08] LABS: BASOPHILS % (AUTO) 0.1 % (0.0-2.0); HEMATOCRIT 25.3 % (36-52); HEMOGLOBIN 8.1 g/dL (12.0-18.0); LYMPHOCYTES # (AUTO) 0.4 K/uL (2.0-11.5); LYMPHOCYTES % (AUTO) 10.2 % (20.5-51.1); MEAN CORPUSCULAR HEMOGLOBIN 28 pg (27-31); MEAN CORPUSCULAR HGB CONC 32 g/dL (33-37); MEAN CORPUSCULAR VOLUME 85.5 fL (80-94); MONOCYTES # (AUTO) 0.1 K/uL (0.8-1.0); MONOCYTES % (AUTO) 3.2 % (1.7-9.3); NEUTROPHILS # (AUTO) 3.4 K/uL (1.8-7.7); NEUTROPHILS % (AUTO) 86.5 % (42.2-75.2); PLATELET COUNT (AUTO) 51 K/uL (140-450); RED BLOOD CELL COUNT(AUTO) 2.96 MIL/uL (4.20-6.10); RED CELL DISTRIBUTION WIDTH 23.5 % (11.6-13.7); WHITE BLOOD COUNT (AUTO) 3.9 K/uL (4.8-10.8)
--- NOTE | 2022-07-10 07:25 | NUR ---
ENDORSED PT TO CRISTAL ODELL FOR CONTINUITY OF CARE. ALL NEEDS MET THROUGHOUT SHIFT. PT IS STABLE.
[2022-07-10 07:58] LABS: ANION GAP 9.8 (8-16); CARBON DIOXIDE 29.2 mmol/L (21-32); CREATININE 1.1 mg/dL (0.6-1.3)
[2022-07-10 08:00] VITALS: BP 151/80
[2022-07-10] MEDS: FUROSEMIDE 20 MG/2 ML VIAL IVP SCH ×2 (08:33→22:07)
[2022-07-10] MEDS: PANTOPRAZOLE 40 MG INJ VIAL IVP SCH (08:33)
[2022-07-10] MEDS: ECOTRIN 81 MG TABEC PO SCH (08:33)
[2022-07-10] MEDS: VITAMIN A/VITAMIN D OINT 113 GM TUBE TP SCH ×2 (08:35→21:07)
--- NOTE | 2022-07-10 10:45 | NUR ---
SCREEN FOR LOW BENSON SCALE AT RISK, CONTINUE TO FOLLOW PRESSURE ULCER PREVENTION INTERVENTIONS. -TURN AND REPOSITION PATIENT Q 2H, ASSIST IF NEEDED -ASSESS AND MONITOR SKIN CONDITION DURING POSITION CHANGES -OFFLOAD BILATERAL HEELS BY PLACING PILLOWS UNDER CALVES AT ALL TIMES, UNLESS OTHERWISE CONTRAINDICATED -PRESSURE REDISTRIBUTION BY PLACING PILLOWS AND OFFLOADING SACRALCOCCYX -KEEP SKIN CLEAN AND DRY AT ALL TIMES.
[2022-07-10 12:00] VITALS: BP 150/90
[2022-07-10 16:00] VITALS: BP 166/81
[2022-07-10] MEDS ORDERED: hydrALAZINE 25 MG TAB PO PRN (17:15)
--- NOTE | 2022-07-10 18:58 | NUR ---
A/OX2. VSS. AFEBRILE. DENIES PAIN OR DISCOMFORT. SATING 100% ON RA. HYDRALAZINE X1 FOR HYPERTENSION. TOLERATING DIET. ADEUQATE URINE OUTPUT, MOTT CATHETER REMOVED, DUE TO VOID. SKIN INTACT. IV ABX CONTINUED. ALL NEEDS MET, SAFETY AND COMFORT MEASURES MAINTAINED, CALL LIGHT WITHIN REACH.
[2022-07-10 20:00] VITALS: BP 139/83
--- NOTE | 2022-07-10 20:46 | NUR ---
ADMINISTERED DUE MED. PT TOLERATED WELL.
--- NOTE | 2022-07-10 23:40 | NUR ---
PT WAS ANXIOUS. REQUESTED FOR SOMETHING TO CALM HIM DOWN. PRN MED FOR ANXIETY ADMINISTERED. V/S WITHIN NORMAL LIMITS.
[2022-07-11] VITALS: BP 153/81
[2022-07-11] MEDS: PIPERACILLIN/TAZOBACTAM 3.375 GM in DEXTROSE 5% 50 ML IV SCH ×3 (00:46→11:16)
--- NOTE | 2022-07-11 01:00 | NUR ---
PHOTOS OF LEFT FOOT OPEN WOUND AND BLISTER TAKEN. FILED IN THE CHART.
[2022-07-11 04:00] VITALS: BP 146/95
[2022-07-11] MEDS: LACTULOSE 20 GM/30 ML UDC PO SCH ×2 (04:17→12:50)
[2022-07-11] MEDS: HYDROCORTISONE NA SUCC 100 MG/2 ML VIAL IV SCH (05:20)
[2022-07-11 06:10] LABS: EOSINOPHILS % (AUTO) 0.1 % (0.0-4.0); HEMATOCRIT 25.7 % (36-52); HEMOGLOBIN 8.3 g/dL (12.0-18.0); LYMPHOCYTES # (AUTO) 0.4 K/uL (2.0-11.5); MEAN CORPUSCULAR HEMOGLOBIN 28 pg (27-31); MEAN CORPUSCULAR HGB CONC 32 g/dL (33-37); MEAN CORPUSCULAR VOLUME 85.5 fL (80-94); MONOCYTES # (AUTO) 0.2 K/uL (0.8-1.0); MONOCYTES % (AUTO) 4.2 % (1.7-9.3); NEUTROPHILS # (AUTO) 3.5 K/uL (1.8-7.7); PLATELET COUNT (AUTO) 48 K/uL (140-450); RED BLOOD CELL COUNT(AUTO) 3.01 MIL/uL (4.20-6.10); RED CELL DISTRIBUTION WIDTH 23.1 % (11.6-13.7)
--- NOTE | 2022-07-11 06:27 | NUR ---
PT SITTING IN BED. NO DISTRESS NOTED. SAFETY PRECAUTIONS IN PLACE.
[2022-07-11 06:28] LABS: ANION GAP 6.7 (8-16); CARBON DIOXIDE 32.2 mmol/L (21-32); CREATININE 1.1 mg/dL (0.6-1.3)
[2022-07-11] MEDS: MIDODRINE 5 MG TAB PO SCH ×2 (06:31→12:51)
--- NOTE | 2022-07-11 06:32 | NUR ---
RECEIVED CRITICAL LAB FOR POTASSIUM 2.9- MADE AWARE. AWAITING FOR RESPONSE. INFORMED COVERING CRISTAL NICHOLSON.
[2022-07-11 06:33] LABS: POTASSIUM 2.9 mmol/L (3.5-5.1)
[2022-07-11] MEDS: KCL 20 MEQ IN 100 mL PREMIX 200 ML IV PRN ×2 (06:35→06:52)
[2022-07-11 07:15] LABS: LYMPHOCYTES % (AUTO) 9.5 % (20.5-51.1); NEUTROPHILS % (AUTO) 86.2 % (42.2-75.2)
--- NOTE | 2022-07-11 07:24 | NUR ---
GAVE BEDSIDE REPORT TO CRISTAL LEACH FOR CONTINUITY OF CARE. ENDORSED CRITICAL LAB FOR POTASSIUM 2.9. CRISTAL NICHOLSON GAVE IV POTASSIUM, STILL INFUSING. PT IN STABLE CONDITION.
--- NOTE | 2022-07-11 07:34 | NUR ---
NURSES NOTE RECEIVED PATIENT AT BED SIDE SLEEPING ON BED ACAUDAL TO VOICE , ON BED REST , A/OX3 , VSS , SKIN NOT INTACT WEAKNESS LOWER EXTREMITY , CONTINENT X2 , USED URINAL , IV INTACT , ON MECHANICAL SOFT DIET NO NAUSEA OR VOMITING , HIS K LOW REPLACE WITH IRON HANDLER , SAFETY PROACTION ON PLACE , SIDE RAILS UP X3 , BED ON LOWER POSITION CALL LIGHT WITHIN REACH , PATIENT STILL UNDER OBSERVE .
--- NOTE | 2022-07-11 08:00 | NUR ---
NURSE NOTES KCL WASN'T GIVEN YESTERDAY DAYSHIFT NURSE FOR K OF 3.0 AND KCL HUNG AT 0130 BY THIS NURSE FOR KCL BUT IT WAS ACKNOWLEDGED AND NOT SHOWING ADMINISTERED. IT WAS INFUSING AT 0130 AND THEN LABS VLADIMIR AM LAB AND K WAS 2.9. GIVEN 20MEQ THIS AM.
[2022-07-11] MEDS: FUROSEMIDE 20 MG/2 ML VIAL IVP SCH (08:12)
[2022-07-11] MEDS: ECOTRIN 81 MG TABEC PO SCH (08:13)
[2022-07-11] MEDS: PANTOPRAZOLE 40 MG INJ VIAL IVP SCH (08:13)
[2022-07-11] MEDS: VITAMIN A/VITAMIN D OINT 113 GM TUBE TP SCH (08:13)
[2022-07-11 08:44] VITALS: BP 149/92
[2022-07-11] MEDS ORDERED: POTASSIUM CHLORIDE 10 MEQ TABER PO SCH (10:35)
[2022-07-11] MEDS ORDERED: ALBUTEROL HFA MDI 90 MCG/ACTUATION 8 GM INH PRN (10:35)
--- NOTE | 2022-07-11 11:40 | NUR ---
NURSES NOT I GET CALL FROM PHARMACY SHE SAID PATIENT CAN NOT TAKE ALBUTEROL ON THE FLOOR DR NEED TO CHANGE IT TO INHALER SOLUTION , MASSAGE SENT TO DR PINEDA .
[2022-07-11 12:10] VITALS: BP 144/84
--- NOTE | 2022-07-11 12:33 | NUR ---
NURSES NOTE PATIENT A/OX3 , VSS , ON MECHANICAL SOFT DIET , HE CAN HAS DISCHARGE ORDER TODAY .
[2022-07-11] MEDS ORDERED: HYDROCORTISONE NA SUCC 100 MG/2 ML VIAL IV SCH (13:00)
[2022-07-11] MEDS ORDERED: HYDR-1098 PO (13:03)
[2022-07-11] MEDS ORDERED: ASPI-1856 PO (13:03)
[2022-07-11 13:06] VITALS: BP 144/84
[2022-07-11 13:13] VITALS: BP 144/84
--- NOTE | 2022-07-11 15:00 | NUR ---
NURSES NOTE PATIENT DISCHARGE HOME , VSDonna Hinds/MICHAEL3 , HIS PICC LINE REMOVED AND HEART MONITOR MEDICATION RECONCILED , DISCHARGE PACK IT EXPLAIN FOR PATIENT , PT VERBALIZED UNDERSTANDING OF GIVEN ASSISTED TO LOBBY AND PICKED UP BY AURELIO .
[2022-07-13 06:08] LABS: HEPATITIS A ANTIBODY IGM Negative (Negative); HEPATITIS B CORE AB TOTAL Negative (Negative); HEPATITIS B SURFACE ANTIBODY Non Reactive (.); HEPATITIS B SURFACE ANTIGEN Negative (Negative)
--- NOTE | 2022-07-22 10:21 | NUR ---
CALLED [facility] LOCATED AT [address] [facility] [facility] [address] [address] SPOKE WITH ALFREDA WHO HELPED ME MAKE AN APPOINTMENT FOR 07/27/2022 AT 0800. CALLED PT AT LEFT MESSAGE ON VOICE MAIL INFORMING PT OF THE ABOVE INFORMATION AND TO: ARRIVE 30 MIN EARLY, BRING DISCHARGE PAPERWORK, CURRENT NEW MEDS, ID, AND INSURANCE CARDS
== END 2022-07-11 15:20 | disposition home or self-care (01) | DRG 133 ==
LOC: MED 13:59 → MTU 17:51 → MIC 21:44 → MTU 07-09 15:59
PROVIDERS: ADMIT Hospitalist; ATTEND Hospitalist
PROC: 02HV33Z Insertion of Infusion Device into Superior Vena Cava, Percutaneous Approach (ICD-10-PCS; 2022-07-06)
PROC: B548ZZA Ultrasonography of Superior Vena Cava, Guidance (ICD-10-PCS; 2022-07-06)
PROC: 5A09357 Assistance with Respiratory Ventilation, Less than 24 Consecutive Hours, Continuous Positive Airway Pressure (ICD-10-PCS; principal; 2022-07-07)
PROC: 5A09357 Assistance with Respiratory Ventilation, Less than 24 Consecutive Hours, Continuous Positive Airway Pressure (ICD-10-PCS; 2022-07-08)
PROC: 5A0935A Assistance with Respiratory Ventilation, Less than 24 Consecutive Hours, High Flow/Velocity Cannula (ICD-10-PCS; 2022-07-08)
PROC: 5A09357 Assistance with Respiratory Ventilation, Less than 24 Consecutive Hours, Continuous Positive Airway Pressure (ICD-10-PCS; 2022-07-09)
DX: J96.01 Acute respiratory failure with hypoxia (principal); N17.0 Acute kidney failure with tubular necrosis; R57.1 Hypovolemic shock; G92.9 Unspecified toxic encephalopathy; E72.20 Disorder of urea cycle metabolism, unspecified; E44.0 Moderate protein-calorie malnutrition; I21.A1 Myocardial infarction type 2; E83.51 Hypocalcemia; E11.9 Type 2 diabetes mellitus without complications; D64.89 Other specified anemias; E83.42 Hypomagnesemia; F15.10 Other stimulant abuse, uncomplicated; J96.02 Acute respiratory failure with hypercapnia; T68.XXXA Hypothermia, initial encounter; I10 Essential (primary) hypertension; G40.909 Epilepsy, unspecified, not intractable, without status epilepticus; R00.1 Bradycardia, unspecified; R13.10 Dysphagia, unspecified; L85.3 Xerosis cutis; Z20.822 Contact with and (suspected) exposure to COVID-19; Z68.22 Body mass index [BMI] 22.0-22.9, adult
CPT/HCPCS: 36415; 36600; 70450; 71045; 80048; 80053; 80305; 81001; 82140; 82533; 82803; 83605; 83690; 83735; 83880; 84439; 84443; 84484; 85025; 85384; 85610; 85730; 86704; 86706; 86708; 86709; 86803; 87040; 87081; 87340; 92526; 93005; 94660; 96365; 99291; C9113; G0482; J1200; J1630; J1720; J1940; J1953; J2270; J2543; J3475; J3480; J3490; J7030; J7060; Q0092

== ENCOUNTER 2022-08-28 19:38 | Emergency (ER) | payer OTHER ==
[~2022-08-28] VITALS: Ht 170.2 cm; Wt 72.6 kg
[~2022-08-28 19:38] MED LIST changes: +ASPI-1856 PO; -AZIT250T3 PO; +HYDR-1098 PO
[2022-08-28 19:39] VITALS: BP 149/84
[2022-08-28 21:20] VITALS: BP 149/84
--- NOTE | 2022-08-28 21:20 | NUR ---
Patient discharged with v/s stable. Written and verbal after care instructions given and explained. Patient verbalized understanding. Ambulatory with steady gait. All questions addressed prior to discharge. Advised to follow up with PMD.
== END 2022-08-28 21:20 | disposition home or self-care (01) ==
LOC: MED 19:38
DX: M79.10 Myalgia, unspecified site (principal); Z79.899 Other long term (current) drug therapy
CPT/HCPCS: 99281; 99283

== ENCOUNTER 2022-08-30 14:55 | Emergency (ER) | payer OTHER ==
[~2022-08-30] VITALS: Ht 177.8 cm; Wt 68.0 kg
[2022-08-30 15:04] VITALS: BP 112/62
--- NOTE | 2022-08-30 16:35 | NUR ---
called name in lobby and outside sitting area with no answer from patient.
--- NOTE | 2022-08-30 17:01 | NUR ---
2ND ATTEMPT, NOT FOUND
--- NOTE | 2022-08-30 17:15 | NUR ---
LAST ATTEMPT, NOT FOUND IN LOBBY/OUTSIDE. PATIENT LEFT WITHOUT BEING SEEN BY DR. COSTA. NO FURTHER CARE PROVIDED FOR PATIENT.
[2022-08-30] MEDS ORDERED: ATI.5 PO (23:02)
[2022-08-30] MEDS ORDERED: ACET-9800 PO (23:02)
[2022-08-30] MEDS ORDERED: LEVE1000 PO (23:02)
== END 2022-08-30 16:35 | disposition left against medical advice (07) ==
LOC: MED 14:55
DX: M25.559 Pain in unspecified hip (principal); Z53.21 Procedure and treatment not carried out due to patient leaving prior to being seen by health care provider
CPT/HCPCS: 93005; 99281; 99283

== ENCOUNTER 2022-08-30 17:24 | Emergency (ER) | payer OTHER ==
[~2022-08-30] VITALS: Ht 167.6 cm; Wt 65.8 kg
[2022-08-30 17:41] VITALS: BP 106/58
--- NOTE | 2022-08-30 17:43 | NUR ---
CONTACT INFO FOR BROTHER SANDRA [phone]
[2022-08-30 19:16] LABS: BASOPHILS % (AUTO) 0.7 % (0.0-2.0); EOSINOPHILS # (AUTO) 0.1 K/uL (0-0.4); EOSINOPHILS % (AUTO) 2.1 % (0.0-4.0); HEMATOCRIT 24.8 % (36-52); HEMOGLOBIN 8.2 g/dL (12.0-18.0); LYMPHOCYTES % (AUTO) 21.7 % (20.5-51.1); MEAN CORPUSCULAR HEMOGLOBIN 29 pg (27-31); MEAN CORPUSCULAR HGB CONC 33 g/dL (33-37); MONOCYTES # (AUTO) 0.2 K/uL (0.8-1.0); MONOCYTES % (AUTO) 4.2 % (1.7-9.3); NEUTROPHILS # (AUTO) 3.2 K/uL (1.8-7.7); NEUTROPHILS % (AUTO) 71.3 % (42.2-75.2); PLATELET COUNT (AUTO) 181 K/uL (140-450); RED BLOOD CELL COUNT(AUTO) 2.85 MIL/uL (4.20-6.10); RED CELL DISTRIBUTION WIDTH 20.9 % (11.6-13.7); WHITE BLOOD COUNT (AUTO) 4.5 K/uL (4.8-10.8)
[2022-08-30 19:40] LABS: ANION GAP 9.8 (8-16); ASPARTATE AMINOTRANSFERASE 26 U/L (15-37); CARBON DIOXIDE 26.5 mmol/L (21-32); CHLORIDE 103 mmol/L (98-107); CREATININE 0.9 mg/dL (0.6-1.3); GFR ARICAN-AMERICAN 109 mL/min (>90); GLUCOSE 101 mg/dL (74-106); POTASSIUM 3.3 mmol/L (3.5-5.1); SODIUM SERUM 136 mmol/L (136-145); TOTAL BILIRUBIN 0.2 mg/dL (0.0-1.0); UREA NITROGEN, BLOOD 18 mg/dL (7-18)
[2022-08-30] MEDS ORDERED: ACETAMINOPHEN 325 MG TAB PO SCH (20:00)
--- NOTE | 2022-08-30 21:30 | NUR ---
PT TO BED 10
--- NOTE | 2022-08-30 21:35 | NUR ---
Patient resting in bed, A/Ox4, chest rise and fall symmetrical, no c/o pain or s/s of distress, on monitor.
--- NOTE | 2022-08-30 21:40 | NUR ---
RONEN physcician speaking with patient.
--- NOTE | 2022-08-30 23:00 | NUR ---
Patient resting in bed, A/Ox4, chest rise and fall symmetrical, no c/o pain or s/s of distress, on monitor.
[2022-08-30] MEDS ORDERED: ATI.5 PO (23:02)
[2022-08-30] MEDS ORDERED: LEVE1000 PO (23:02)
[2022-08-30] MEDS ORDERED: ACET-9800 PO (23:02)
[2022-08-30 23:28] VITALS: BP 115/74
--- NOTE | 2022-08-30 23:30 | NUR ---
Patient discharged with v/s stable. Written and verbal after care instructions given and explained. Patient alert, oriented and verbalized understanding of instructions. Ambulatory with to car. All questions addressed prior to discharge. ID band removed. Patient advised to follow up with PMD. Rx given to patient. Patient educated on indication of medication including possible reaction and side effects. Opportunity to ask questions provided and answered. Addendum: 08/30/22 at 2331 by [id number] Patient discharged with v/s stable. Written and verbal after care instructions given and explained. Patient alert, oriented and verbalized understanding of instructions. Ambulatory with to [employer]. All questions addressed prior to discharge. ID band removed. Patient advised to follow up with PMD. Rx given to patient. Patient educated on indication of medication including possible reaction and side effects. Opportunity to ask questions provided and answered. [employer] delivery truck driver verbalized understanding of address and drop off instructions, no further questions from [employer] delivery truck driver.
== END 2022-08-30 23:20 | disposition home or self-care (01) ==
LOC: MED 17:24
DX: G47.00 Insomnia, unspecified (principal); R07.9 Chest pain, unspecified; G40.909 Epilepsy, unspecified, not intractable, without status epilepticus; G89.29 Other chronic pain; Z76.0 Encounter for issue of repeat prescription; Z79.899 Other long term (current) drug therapy
CPT/HCPCS: 36415; 71045; 80053; 84484; 85025; 93005; 99285

== ENCOUNTER 2022-09-29 12:47 | Inpatient (IN) | payer OTHER ==
[~2022-09-29] VITALS: Ht 177.8 cm; Wt 67.1 kg
[~2022-09-29 12:47] MED LIST changes: +ACET-9800 PO; +ATI.5 PO; +LEVE1000 PO
[2022-09-29 12:51] VITALS: BP 143/79; PULSE 63; RESP 18; TEMP 97.4; O2SAT 100
--- NOTE | 2022-09-29 14:48 | NUR ---
SITTING UP IN WHEELCHAIR, ALERT X 4, NO DISTRESS. SUPERFICIAL ABRASION ON R PARIETAL AREA NOTED
[2022-09-29 15:45] LABS: BASOPHILS % (AUTO) 0.3 % (0.0-2.0); EOSINOPHILS % (AUTO) 0.5 % (0.0-4.0); HEMATOCRIT 27.9 % (36-52); HEMOGLOBIN 9.2 g/dL (12.0-18.0); LYMPHOCYTES # (AUTO) 1.3 K/uL (2.0-11.5); LYMPHOCYTES % (AUTO) 35.1 % (20.5-51.1); MEAN CORPUSCULAR HEMOGLOBIN 29 pg (27-31); MEAN CORPUSCULAR HGB CONC 33 g/dL (33-37); MEAN CORPUSCULAR VOLUME 87.1 fL (80-94); MONOCYTES # (AUTO) 0.2 K/uL (0.8-1.0); MONOCYTES % (AUTO) 5.7 % (1.7-9.3); NEUTROPHILS # (AUTO) 2.2 K/uL (1.8-7.7); NEUTROPHILS % (AUTO) 58.4 % (42.2-75.2); PLATELET COUNT (AUTO) 161 K/uL (140-450); RED BLOOD CELL COUNT(AUTO) 3.21 MIL/uL (4.20-6.10); RED CELL DISTRIBUTION WIDTH 20.6 % (11.6-13.7); WHITE BLOOD COUNT (AUTO) 3.7 K/uL (4.8-10.8)
[2022-09-29 16:12] LABS: ALBUMIN 2.2 g/dL (3.4-5.0); ANION GAP 9.4 (8-16); ASPARTATE AMINOTRANSFERASE 30 U/L (15-37); CARBON DIOXIDE 27.5 mmol/L (21-32); CHLORIDE 99 mmol/L (98-107); CREATININE 0.8 mg/dL (0.6-1.3); GFR ARICAN-AMERICAN 124 mL/min (>90); GLUCOSE 84 mg/dL (74-106); POTASSIUM 3.9 mmol/L (3.5-5.1); SODIUM SERUM 132 mmol/L (136-145); TOTAL BILIRUBIN 0.1 mg/dL (0.0-1.0); UREA NITROGEN, BLOOD 15 mg/dL (7-18)
[2022-09-29] MEDS ORDERED: KCL 20 MEQ IN 100 mL PREMIX 200 ML IV PRN (17:50)
[2022-09-29] MEDS ORDERED: ACETAMINOPHEN 325 MG TAB PO PRN (17:50)
[2022-09-29] MEDS ORDERED: MAG SULF 2000 MG/WATER PREMIX 50 ML IV PRN (17:50)
[2022-09-29] MEDS ORDERED: MAGNESIUM OXIDE 400 MG TAB PO PRN (17:50)
[2022-09-29] MEDS ORDERED: POTASSIUM CHLORIDE 10 MEQ TABER PO PRN (17:50)
[2022-09-29] MEDS ORDERED: HYDROcodone/APAP 5/325 MG 1 TAB TAB PO PRN (17:50)
--- NOTE | 2022-09-29 17:53 | NUR ---
BIBA FOR CLOSED HEAD INJURY SP FALL OFF HIS WHEELCHAIR AND WITH ACCOMPANYING WEAKNESS.
--- NOTE | 2022-09-29 18:45 | NUR ---
DISPO AND MEDICAL DECISION MAKING, INPATIENT ADMISSION FOR FURTHER MANAGEMENT, AWAITING BED ASSIGNMENT.
--- NOTE | 2022-09-29 19:20 | NUR ---
RECEIVED REPORT FROM FAVIOLA BEE. CONTINUING CARE FOR PATIENT.
--- NOTE | 2022-09-29 21:28 | NUR ---
Patient will be admitted to care of Dr. Tatum. Admited to MST 119B. Will go to room 119B. Belongings list completed. Report to CRISTAL Pulido.
[2022-09-29] MEDS ORDERED: LORazepam 2 MG/ML VIAL IVP PRN (22:05)
--- NOTE | 2022-09-29 22:06 | NUR ---
ASSESSMENT COMPLETED PT ORIENTED TO ROOM AND PLAN OF CARE NOTED TO BE ANXIOUS TROPONIN 102 MD AWARE. MD ALSO AWARE PT ANXIOUS AND AGITATED ATIVAN ORDERED PT MADE AWARE CONDITION GUARDED DENIES CHEST PAIN WILL CONTINUE TO MONITOR AND ASSESS
--- NOTE | 2022-09-29 22:47 | NUR ---
PT COMPLAINS OF SEVERE ITCHINESS AT BEAU LEGS MD MADE AWARE BENPIPEL ORDERED WILL NOTE AND CARRY OUT
[2022-09-29] MEDS: MORPHINE SULFATE 2 MG/ML SYR IVP PRN (22:49)
[2022-09-29 23:05] VITALS: PULSE 69; RESP 18; O2SAT 98
--- NOTE | 2022-09-29 23:40 | NUR ---
PT REFUSED 3RD TROPONIN RISK EXPLAINED PT CONTINUES TO REFUSE DENIES CHEST PAIN AT THIS TIME
[2022-09-30] VITALS: BP 110/55; PULSE 66; RESP 18; TEMP 97.6; O2SAT 98
--- NOTE | 2022-09-30 01:37 | NUR ---
BENADRYL EFFECTIVE AT THIS TIME DENIES ITCHING WILL CONIRNUE TO MONITOR AND ASSESS
[2022-09-30 02:12] LABS: BASOPHILS % (AUTO) 1.2 % (0.0-2.0); EOSINOPHILS % (AUTO) 0.5 % (0.0-4.0); HEMATOCRIT 26.7 % (36-52); HEMOGLOBIN 8.6 g/dL (12.0-18.0); LYMPHOCYTES # (AUTO) 1.1 K/uL (2.0-11.5); LYMPHOCYTES % (AUTO) 36.8 % (20.5-51.1); MEAN CORPUSCULAR HEMOGLOBIN 28 pg (27-31); MEAN CORPUSCULAR HGB CONC 32 g/dL (33-37); MEAN CORPUSCULAR VOLUME 87.1 fL (80-94); MONOCYTES # (AUTO) 0.1 K/uL (0.8-1.0); MONOCYTES % (AUTO) 3.9 % (1.7-9.3); NEUTROPHILS # (AUTO) 1.7 K/uL (1.8-7.7); NEUTROPHILS % (AUTO) 57.6 % (42.2-75.2); PLATELET COUNT (AUTO) 151 K/uL (140-450); RED BLOOD CELL COUNT(AUTO) 3.06 MIL/uL (4.20-6.10); RED CELL DISTRIBUTION WIDTH 20.1 % (11.6-13.7); WHITE BLOOD COUNT (AUTO) 2.9 K/uL (4.8-10.8)
--- NOTE | 2022-09-30 02:12 | NUR ---
ABLE TO CONVINCE PT TO HAVE LABS DRAWN TICKET SALES SUPERVISOR OBTAINED ALL LABS FOR AM AT THIS TIME DUE TO PT NON COMPLIANCE
[2022-09-30 02:44] LABS: ALBUMIN 1.9 g/dL (3.4-5.0); ANION GAP 7.5 (8-16); CARBON DIOXIDE 29.3 mmol/L (21-32); CREATININE 0.8 mg/dL (0.6-1.3); MAGNESIUM 1.8 mg/dL (1.8-2.4); POTASSIUM 3.8 mmol/L (3.5-5.1); TOTAL BILIRUBIN 0.1 mg/dL (0.0-1.0)
--- NOTE | 2022-09-30 02:58 | NUR ---
TROPONIN 92 TRENDING DOWN PT DENIES CHEST PAIN AT THIS TIME WILL TEXT MD RESULTS
[2022-09-30 04:00] VITALS: BP 116/56; PULSE 71; RESP 18; TEMP 97.4; O2SAT 98
--- NOTE | 2022-09-30 06:50 | NUR ---
NO DISTRESS ALL NEEDS ANTICIPATED AND MET WILL ENDORSE CARE TO ONCOMING LICENSED NURSE
--- NOTE | 2022-09-30 07:30 | NUR ---
RECEIVED REPORT FROM MANAGER OF PMO NURSE FOR CONTINUITY OF CARE, POC DISCUSSED. PT IS RESTING IN BED WITH SHEET OVER FACE, PRESS SUPERVISOR AT BEDSIDE OBTAINING VITALS. CHEST RISING AND FALLING EVEN AND UNLABORED, ON TELE MONITOR. ALL SAFETY MEASURES IN PLACE, CALL LIGHT WITHIN REACH.
[2022-09-30 08:00] VITALS: BP 117/54; PULSE 59; PULSE 72; RESP 18; TEMP 98.6; O2SAT 99
[2022-09-30] MEDS: MORPHINE SULFATE 2 MG/ML SYR IVP PRN (08:34)
[2022-09-30] MEDS ORDERED: ASPIRIN 81 MG TAB.CHEW PO SCH (09:00)
[2022-09-30] MEDS ORDERED: ATORVASTATIN 20 MG TAB PO SCH (09:00)
[2022-09-30] MEDS ORDERED: ENOXAPARIN 40 MG/0.4 ML SYR SUBQ SCH (09:00)
--- NOTE | 2022-09-30 09:09 | NUR ---
PATIENT HAS BEEN SCREENED AND CATEGORIZED LOW NUTRITION RISK. PATIENT WILL BE SEEN WITHIN 7 DAYS OF ADMISSION. 10/06/[address]
[2022-09-30 12:00] VITALS: BP 104/59; PULSE 66; PULSE 82; RESP 18; TEMP 97.2; O2SAT 98
--- NOTE | 2022-09-30 15:10 | NUR ---
DR PINEDA AT BEDSIDE, PT BEING DISCHARGED ONCE CLEARED BY CARDIAC STANDPOINT. HOMELESS RESOURCE PACKET PROVIDED TO PT WITH LIST OF SHELTERS TO CALL. EDUCATED ON IMPORTANCE OF CALLING SHELTERS NOW TO FIND AVAILABILITIES. STATED WHEN HE FINDS ONE, TO PROVIDED THE ADDRESS AND I WILL LET HOUSE [employer] KNOW. PT ALSO PROVIDED A SECOND ADDRESS IN CASE HE IS UNABLE TO FIND LONG-TERM. ADDRESS WRITTEN DOWN. PT PROVIDED WITH SNACKS UPON REQUEST, EDUCATED ON HOW TO USE ROOM PHONE. ALL QUESTIONS ANSWERED. PENDING DR BURKS CLEARANCE.
--- NOTE | 2022-09-30 15:21 | NUR ---
CALLED PTS BROTHER UPON REQUEST, ALEC HANSEN, INFORMED HIM PT WILL BE DISCHARGED AND WAS PROVIDED WITH A HOMELESS PACKET TO CALL SHELTERS.
--- NOTE | 2022-09-30 15:44 | NUR ---
PT STATES HE DOES NOT WANT TO CONTINUE TO CALL AND WILL JUST GO TO THE ADDRESS HE PROVIDED. TELEPHONE CLEARANCE BY DR BURKS OBTAINED. DISCHARGE INSTRUCTIONS PROVIDED.
[2022-09-30 16:00] VITALS: BP 123/56; PULSE 83; RESP 18; TEMP 96.7; O2SAT 95
--- NOTE | 2022-09-30 16:20 | NUR ---
PT WAS DISCHARGED IN STABLE CONDITION, PROVIDED WITH SHIRT AND PANTS DUE TO PATIENT NOT HAVING ANY. A SANDWICH WAS ALSO PROVIDED. ALL DISCHARGE INSTRUCTIONS PROVIDED, AND SIGNED. ALL QUESTIONS ANSWERED. PT WHEELCHAIRED OUT AFTER IV, ID BAND AND TELE MONITOR WAS REMOVED. HOUSE S[employer] ORDERED UBER WITH THE ADDRESS PT PROVIDED. PT HAS ALL BELONGINGS INCLUDING WALKER IN POSSESSION.
== END 2022-09-30 16:20 | disposition home or self-care (01) | DRG 190 ==
LOC: MED 12:47 → MTU 17:51
PROVIDERS: ADMIT Hospitalist; ATTEND Hospitalist
DX: I21.4 Non-ST elevation (NSTEMI) myocardial infarction (principal); E44.0 Moderate protein-calorie malnutrition; R65.10 Systemic inflammatory response syndrome (SIRS) of non-infectious origin without acute organ dysfunction; G40.909 Epilepsy, unspecified, not intractable, without status epilepticus; Z20.822 Contact with and (suspected) exposure to COVID-19; R55 Syncope and collapse; Z68.21 Body mass index [BMI] 21.0-21.9, adult
CPT/HCPCS: 36415; 70450; 80053; 83735; 84484; 85025; 87081; 93005; 97110; 97116; 97530; 99285; J1650; J2270; Q0163

== ENCOUNTER 2022-10-22 15:31 | Emergency (ER) | payer OTHER ==
[~2022-10-22] VITALS: Ht 182.9 cm; Wt 77.1 kg
[2022-10-22 15:49] VITALS: BP 157/87
--- NOTE | 2022-10-22 16:00 | NUR ---
FULLY UNDRESSED, PT COOPERATIVE AND CONVERSANT, "FEELS TIRED" OLD DRY WOUND NOTED ON R LOWER EXTREMITY
[2022-10-22] MEDS ORDERED: KETOROLAC 30 MG/ML VIAL IVP ONE (17:00)
[2022-10-22] MEDS ORDERED: diphenhydrAMINE 50 MG/ML VIAL IVP ONE (17:00)
[2022-10-22] MEDS ORDERED: PRED20TA5 PO (17:09)
[2022-10-22] MEDS ORDERED: IBUP-2213 PO (17:09)
[2022-10-22] MEDS ORDERED: DIPH25TA53 PO (17:09)
[2022-10-22 19:45] VITALS: BP 142/80
--- NOTE | 2022-10-22 19:45 | NUR ---
Patient discharged with v/s stable. Written and verbal after care instructions given and explained. Patient alert, oriented and verbalized understanding of instructions. Wheel Chair Assisted with to car. All questions addressed prior to discharge. ID band removed. Patient advised to follow up with PMD. Rx of SEE DC INSTRUCTIONS given. Patient educated on indication of medication including possible reaction and side effects. Opportunity to ask questions provided and answered.
--- NOTE | 2022-10-22 20:07 | NUR ---
REQUESTED UBER FROM [facility]. PT GOING TO [address] [place] [address]. FOOD AND HOMELESS PACKET PROVIDED TO PT.
--- NOTE | 2022-10-22 20:08 | NUR ---
Patient discharged with v/s stable. Written and verbal after care instructions given and explained. Patient alert, oriented and verbalized understanding of instructions. Wheel Chair Assisted with to car. All questions addressed prior to discharge. ID band removed. Patient advised to follow up with PMD. Rx of BENADRYL, MOTRIN, PREDISONE given. Patient educated on indication of medication including possible reaction and side effects. Opportunity to ask questions provided and answered.
== END 2022-10-22 20:08 | disposition home or self-care (01) ==
LOC: MED 15:31
DX: L97.529 Non-pressure chronic ulcer of other part of left foot with unspecified severity (principal); R21 Rash and other nonspecific skin eruption; Z79.899 Other long term (current) drug therapy; Z98.890 Other specified postprocedural states
CPT/HCPCS: 96374; 96375; 99284; J1200; J1885

== ENCOUNTER 2022-12-10 10:34 | Inpatient (IN) | payer OTHER ==
[~2022-12-10] VITALS: Ht 165.1 cm; Wt 63.5 kg
[~2022-12-10 10:34] MED LIST changes: +DIPH25TA53 PO; +IBUP-2213 PO; +PRED20TA5 PO
[2022-12-10 10:44] VITALS: BP 130/72; PULSE 100; RESP 18; TEMP 97.6; O2SAT 100
[2022-12-10 10:53] VITALS: O2SAT 100
[2022-12-10 11:31] LABS: BASOPHILS % (AUTO) 0.3 % (0.0-2.0); EOSINOPHILS % (AUTO) 0.8 % (0.0-4.0); HEMATOCRIT 22.2 % (36-52); HEMOGLOBIN 7.1 g/dL (12.0-18.0); LYMPHOCYTES # (AUTO) 1.2 K/uL (2.0-11.5); LYMPHOCYTES % (AUTO) 20.3 % (20.5-51.1); MEAN CORPUSCULAR HEMOGLOBIN 27 pg (27-31); MEAN CORPUSCULAR HGB CONC 32 g/dL (33-37); MEAN CORPUSCULAR VOLUME 85.1 fL (80-94); MONOCYTES # (AUTO) 0.3 K/uL (0.8-1.0); MONOCYTES % (AUTO) 5.7 % (1.7-9.3); NEUTROPHILS # (AUTO) 4.1 K/uL (1.8-7.7); NEUTROPHILS % (AUTO) 72.9 % (42.2-75.2); PLATELET COUNT (AUTO) 196 K/uL (140-450); RED BLOOD CELL COUNT(AUTO) 2.61 MIL/uL (4.20-6.10); RED CELL DISTRIBUTION WIDTH 21.2 % (11.6-13.7); WHITE BLOOD COUNT (AUTO) 5.7 K/uL (4.8-10.8)
[2022-12-10 11:57] LABS: ALBUMIN 1.5 g/dL (3.4-5.0); ANION GAP 11.2 (8-16); CALCIUM 8.1 mg/dL (8.5-10.1); CARBON DIOXIDE 25.9 mmol/L (21-32); POTASSIUM 3.1 mmol/L (3.5-5.1); TOTAL BILIRUBIN 0.1 mg/dL (0.0-1.0); TOTAL PROTEIN, SERUM 11.6 g/dL (6.4-8.2)
[2022-12-10 13:45] LABS: AMPHETAMINE, URINE POSITIVE ng/ml (NEG <=1000); BARBITURATE, URINE NEGATIVE ng/ml (NEG <=200); BENZODIAZEPINE, URINE NEGATIVE ng/mL (NEG <=200); CANNABINOID, URINE NEGATIVE ng/mL (NEG <=50); COCAINE, URINE NEGATIVE ng/mL (NEG <=300); OPIATE, URINE NEGATIVE ng/mL (NEG <=2000); PHENCYCLIDINE SCREEN,URINE NEGATIVE ng/mL (NEG <=25)
[2022-12-10 15:23] VITALS: O2SAT 100
[2022-12-10] MEDS ORDERED: KCL 20 MEQ IN 100 mL PREMIX 200 ML IV PRN (15:25)
[2022-12-10] MEDS ORDERED: MORPHINE SULFATE 2 MG/ML SYR IVP PRN (15:25)
[2022-12-10] MEDS ORDERED: HYDROcodone/APAP 5/325 MG 1 TAB TAB PO PRN (15:25)
[2022-12-10] MEDS ORDERED: MAGNESIUM OXIDE 400 MG TAB PO PRN (15:25)
[2022-12-10] MEDS ORDERED: POTASSIUM CHLORIDE 10 MEQ TABER PO PRN (15:25)
[2022-12-10] MEDS ORDERED: ACETAMINOPHEN 325 MG TAB PO PRN (15:25)
[2022-12-10] MEDS ORDERED: MAG SULF 2000 MG/WATER PREMIX 50 ML IV PRN (15:25)
[2022-12-10] MEDS ORDERED: ONDANSETRON 4 MG/2 ML VIAL IVP PRN (15:25)
[2022-12-10] MEDS ORDERED: cefTRIAXone 1,000 MG VIAL ONE (15:47)
[2022-12-10] MEDS ORDERED: DEXTROSE 50% 50 ML SYR IVP PRN (15:50)
[2022-12-10] MEDS ORDERED: INSULIN LISPRO SLIDING SCALE 100 UNITS/ML VIAL SUBQ PRN ×2 (15:50→19:25)
[2022-12-10 16:01] LABS: LACTIC ACID 1.7 mmol/L (0.4-2.0)
[2022-12-10] MEDS: FUROSEMIDE 40 MG/4 ML VIAL IVP SCH ×2 (16:03→20:22)
[2022-12-10] MEDS ORDERED: BLOOD GLUCOSE MONITORING 1 DEV DEV FS SCH (16:30)
[2022-12-10 17:30] VITALS: PULSE 100; RESP 18; O2SAT 97
[2022-12-10 20:00] VITALS: BP 131/77; PULSE 77; PULSE 88; RESP 17; TEMP 98.9; O2SAT 98
[2022-12-10] MEDS: AZITHROMYCIN 500 MG in DEXTROSE 5% 250 ML IV SCH (20:03)
[2022-12-10] MEDS: BLOOD GLUCOSE MONITORING 1 DEV DEV FS SCH (20:25)
[2022-12-10] MEDS: ALBUMIN HUMAN 25% 50 ML IV SCH (22:33)
[2022-12-11] VITALS (8 sets, daily range): BP systolic 115–139; BP diastolic 49–76; PULSE 62–98; RESP 18; TEMP 97.1–98.5; O2SAT 93–100
[2022-12-11] MEDS: ALBUMIN HUMAN 25% 50 ML IV SCH ×2 (05:02→12:42)
[2022-12-11 06:09] LABS: BASOPHILS % (AUTO) 0.3 % (0.0-2.0); EOSINOPHILS % (AUTO) 0.5 % (0.0-4.0); HEMATOCRIT 22.5 % (36-52); HEMOGLOBIN 7.4 g/dL (12.0-18.0); LYMPHOCYTES # (AUTO) 0.8 K/uL (2.0-11.5); MEAN CORPUSCULAR HEMOGLOBIN 28 pg (27-31); MEAN CORPUSCULAR HGB CONC 33 g/dL (33-37); MEAN CORPUSCULAR VOLUME 83.4 fL (80-94); MONOCYTES # (AUTO) 0.3 K/uL (0.8-1.0); MONOCYTES % (AUTO) 3.7 % (1.7-9.3); NEUTROPHILS # (AUTO) 5.9 K/uL (1.8-7.7); NEUTROPHILS % (AUTO) 84.5 % (42.2-75.2); PLATELET COUNT (AUTO) 213 K/uL (140-450); RED CELL DISTRIBUTION WIDTH 20.9 % (11.6-13.7)
[2022-12-11] MEDS: BLOOD GLUCOSE MONITORING 1 DEV DEV FS SCH ×4 (06:27→20:52)
[2022-12-11 06:28] LABS: ALBUMIN 1.4 g/dL (3.4-5.0); ANION GAP 8.7 (8-16); CARBON DIOXIDE 31.1 mmol/L (21-32); CREATININE 0.9 mg/dL (0.6-1.3); MAGNESIUM 1.8 mg/dL (1.8-2.4); POTASSIUM 3.8 mmol/L (3.5-5.1); TOTAL BILIRUBIN 0.1 mg/dL (0.0-1.0); TOTAL PROTEIN, SERUM 11.5 g/dL (6.4-8.2)
[2022-12-11 07:27] LABS: ANISOCYTOSIS 2+
[2022-12-11] MEDS: FUROSEMIDE 40 MG/4 ML VIAL IVP SCH ×2 (08:48→20:33)
[2022-12-11] MEDS: AZITHROMYCIN 500 MG in DEXTROSE 5% 250 ML IV SCH (16:42)
[2022-12-11] MEDS: DOCUSATE SODIUM 100 MG GELCAP PO SCH (20:33)
[2022-12-12] VITALS: BP 115/62; PULSE 73; PULSE 82; RESP 18; TEMP 97.3; O2SAT 100
[2022-12-12 04:00] VITALS: BP 127/61; PULSE 71; PULSE 75; RESP 19; TEMP 97.4; O2SAT 96
[2022-12-12] MEDS: BLOOD GLUCOSE MONITORING 1 DEV DEV FS SCH ×3 (06:43→16:21)
[2022-12-12 06:52] LABS: BASOPHILS % (AUTO) 0.2 % (0.0-2.0); EOSINOPHILS % (AUTO) 0.5 % (0.0-4.0); HEMATOCRIT 20.7 % (36-52); LYMPHOCYTES # (AUTO) 1.3 K/uL (2.0-11.5); LYMPHOCYTES % (AUTO) 17.8 % (20.5-51.1); MEAN CORPUSCULAR HEMOGLOBIN 27 pg (27-31); MEAN CORPUSCULAR HGB CONC 32 g/dL (33-37); MEAN CORPUSCULAR VOLUME 83.3 fL (80-94); MONOCYTES # (AUTO) 0.2 K/uL (0.8-1.0); MONOCYTES % (AUTO) 2.9 % (1.7-9.3); NEUTROPHILS # (AUTO) 5.6 K/uL (1.8-7.7); NEUTROPHILS % (AUTO) 78.6 % (42.2-75.2); PLATELET COUNT (AUTO) 206 K/uL (140-450); RED BLOOD CELL COUNT(AUTO) 2.48 MIL/uL (4.20-6.10); RED CELL DISTRIBUTION WIDTH 20.9 % (11.6-13.7); WHITE BLOOD COUNT (AUTO) 7.1 K/uL (4.8-10.8)
[2022-12-12 07:16] LABS: HEMOGLOBIN 6.7 g/dL (12.0-18.0)
[2022-12-12 07:19] LABS: ALBUMIN 1.6 g/dL (3.4-5.0); ANION GAP 9.4 (8-16); CALCIUM 8.1 mg/dL (8.5-10.1); CARBON DIOXIDE 29.2 mmol/L (21-32); CREATININE 0.9 mg/dL (0.6-1.3); MAGNESIUM 1.8 mg/dL (1.8-2.4); POTASSIUM 3.6 mmol/L (3.5-5.1); TOTAL BILIRUBIN 0.2 mg/dL (0.0-1.0); TOTAL PROTEIN, SERUM 11.4 g/dL (6.4-8.2)
[2022-12-12 07:31] LABS: ANISOCYTOSIS 1+; HYPOCHROMASIA 1+
[2022-12-12 08:00] VITALS: BP 124/68; PULSE 69; PULSE 76; RESP 18; TEMP 97; O2SAT 99
[2022-12-12] MEDS: DOCUSATE SODIUM 100 MG GELCAP PO SCH (08:31)
[2022-12-12] MEDS: FUROSEMIDE 40 MG/4 ML VIAL IVP SCH (09:22)
[2022-12-12 12:00] VITALS: BP 141/70; PULSE 71; PULSE 87; RESP 18; TEMP 98; O2SAT 100
[2022-12-12] MEDS ORDERED: AMOX-999 PO (14:47)
[2022-12-12 16:00] VITALS: BP 120/58; PULSE 81; PULSE 89; RESP 19; TEMP 97.2; O2SAT 98
== END 2022-12-12 17:27 | disposition home or self-care (01) | DRG 139 ==
LOC: MERGE 10:34 → MED 10:34 → MTU 15:36
PROVIDERS: ADMIT Hospitalist; ATTEND Hospitalist
PROC: 30233N1 Transfusion of Nonautologous Red Blood Cells into Peripheral Vein, Percutaneous Approach (ICD-10-PCS; principal; 2022-12-12)
DX: J18.9 Pneumonia, unspecified organism (principal); G92.9 Unspecified toxic encephalopathy; E43 Unspecified severe protein-calorie malnutrition; E87.1 Hypo-osmolality and hyponatremia; Z68.45 Body mass index [BMI] 70 or greater, adult; D64.9 Anemia, unspecified; E11.9 Type 2 diabetes mellitus without complications; E86.0 Dehydration; E78.5 Hyperlipidemia, unspecified; E87.6 Hypokalemia; F15.10 Other stimulant abuse, uncomplicated; G40.909 Epilepsy, unspecified, not intractable, without status epilepticus; I10 Essential (primary) hypertension; Z79.82 Long term (current) use of aspirin; Z79.899 Other long term (current) drug therapy
CPT/HCPCS: 36415; 70450; 71045; 80053; 80305; 82550; 83605; 83735; 83880; 84484; 85025; 86886; 86900; 86901; 86920; 87040; 87081; 93005; 93970; 96365; 97116; 99285; J0456; J0696; J1644; J1815; J1940; J7060; P9016; P9046; Q0092; Q0163

== ENCOUNTER 2022-12-20 22:07 | Observation (INO) | payer OTHER ==
[~2022-12-20] VITALS: Ht 177.8 cm; Wt 67.1 kg
[~2022-12-20 22:07] MED LIST changes: +AMOX-999 PO; -PRED20TA5 PO
[2022-12-20 22:15] VITALS: BP 152/70; PULSE 70; RESP 18; TEMP 97.5; O2SAT 100
[2022-12-21 03:02] LABS: BASOPHILS # (AUTO) 0.1 K/uL (0.00-0.22); BASOPHILS % (AUTO) 0.9 % (0.0-2.0); EOSINOPHILS % (AUTO) 0.8 % (0.0-4.0); HEMATOCRIT 20.8 % (36-52); LYMPHOCYTES # (AUTO) 1.2 K/uL (2.0-11.5); LYMPHOCYTES % (AUTO) 21.8 % (20.5-51.1); MEAN CORPUSCULAR HEMOGLOBIN 27 pg (27-31); MEAN CORPUSCULAR HGB CONC 32 g/dL (33-37); MEAN CORPUSCULAR VOLUME 84.9 fL (80-94); MONOCYTES # (AUTO) 0.3 K/uL (0.8-1.0); MONOCYTES % (AUTO) 4.7 % (1.7-9.3); NEUTROPHILS # (AUTO) 3.9 K/uL (1.8-7.7); NEUTROPHILS % (AUTO) 71.8 % (42.2-75.2); PLATELET COUNT (AUTO) 194 K/uL (140-450); RED BLOOD CELL COUNT(AUTO) 2.45 MIL/uL (4.20-6.10); RED CELL DISTRIBUTION WIDTH 21.6 % (11.6-13.7); WHITE BLOOD COUNT (AUTO) 5.4 K/uL (4.8-10.8)
[2022-12-21 03:16] LABS: HEMOGLOBIN 6.7 g/dL (12.0-18.0)
[2022-12-21 03:21] LABS: ALBUMIN 1.6 g/dL (3.4-5.0); ANION GAP 8.1 (8-16); CALCIUM 7.8 mg/dL (8.5-10.1); CARBON DIOXIDE 29.3 mmol/L (21-32); CREATININE 0.9 mg/dL (0.6-1.3); POTASSIUM 3.4 mmol/L (3.5-5.1); TOTAL BILIRUBIN 0.1 mg/dL (0.0-1.0); TOTAL PROTEIN, SERUM 11.9 g/dL (6.4-8.2)
[2022-12-21 03:33] LABS: CREATINE KINASE, TOTAL 37 U/L (39-308); THYROID STIMULATING HORMONE 3.42 uIU/mL (0.34-3.74)
[2022-12-21 04:10] LABS: INR 1.02 (0.8-1.2); PARTIAL THROMBOPLASTIN TIME 26.1 secs (22-35.6); PROTHROMBIN TIME 10.7 secs (10.8-13.4)
[2022-12-21 05:47] LABS: ANION GAP 9.1 (8-16); CALCIUM 8.1 mg/dL (8.5-10.1); CARBON DIOXIDE 26.1 mmol/L (21-32); CREATININE 0.9 mg/dL (0.6-1.3); POTASSIUM 4.2 mmol/L (3.5-5.1)
[2022-12-21] MEDS ORDERED: MORPHINE SULFATE 2 MG/ML SYR IVP PRN (07:05)
[2022-12-21] MEDS ORDERED: ACETAMINOPHEN 325 MG TAB PO PRN (07:05)
[2022-12-21] MEDS ORDERED: ONDANSETRON 4 MG/2 ML VIAL IVP PRN (07:05)
[2022-12-21] MEDS ORDERED: LORazepam 2 MG/ML VIAL IVP PRN (07:05)
[2022-12-21] MEDS: NACL 0.9% 1,000 ML IV SCH ×2 (07:57→20:25)
[2022-12-21 10:00] VITALS: BP 129/60; PULSE 60; RESP 14; TEMP 97.5; O2SAT 99
[2022-12-21] MEDS: levETIRAcetam 500 MG TAB PO SCH ×2 (10:40→22:05)
[2022-12-21 16:00] VITALS: BP 125/59; PULSE 65; RESP 18; TEMP 97.5; O2SAT 97
[2022-12-21 20:00] VITALS: BP_SYST 122; BP_SYST 136; BP_DIAS 52; BP_DIAS 79; PULSE 65; PULSE 67; PULSE 79; RESP 18; TEMP 97.8; TEMP 98.1; O2SAT 100; O2SAT 97
[2022-12-22 04:00] VITALS: BP 129/57; PULSE 62; RESP 18; TEMP 97.8; O2SAT 99
[2022-12-22 05:46] LABS: BASOPHILS % (AUTO) 0.2 % (0.0-2.0); EOSINOPHILS # (AUTO) 0.1 K/uL (0-0.4); EOSINOPHILS % (AUTO) 0.8 % (0.0-4.0); HEMATOCRIT 25.8 % (36-52); HEMOGLOBIN 8.5 g/dL (12.0-18.0); LYMPHOCYTES # (AUTO) 1.3 K/uL (2.0-11.5); LYMPHOCYTES % (AUTO) 20.6 % (20.5-51.1); MEAN CORPUSCULAR HEMOGLOBIN 28 pg (27-31); MEAN CORPUSCULAR HGB CONC 33 g/dL (33-37); MONOCYTES # (AUTO) 0.3 K/uL (0.8-1.0); MONOCYTES % (AUTO) 4.4 % (1.7-9.3); NEUTROPHILS # (AUTO) 4.8 K/uL (1.8-7.7); PLATELET COUNT (AUTO) 198 K/uL (140-450); RED BLOOD CELL COUNT(AUTO) 3.07 MIL/uL (4.20-6.10); RED CELL DISTRIBUTION WIDTH 20.4 % (11.6-13.7); WHITE BLOOD COUNT (AUTO) 6.5 K/uL (4.8-10.8)
[2022-12-22 06:25] LABS: ALBUMIN 1.6 g/dL (3.4-5.0); ANION GAP 9.7 (8-16); CALCIUM 8.4 mg/dL (8.5-10.1); CARBON DIOXIDE 28.2 mmol/L (21-32); POTASSIUM 3.9 mmol/L (3.5-5.1); TOTAL BILIRUBIN 0.2 mg/dL (0.0-1.0); TOTAL PROTEIN, SERUM 12.4 g/dL (6.4-8.2)
[2022-12-22 08:00] VITALS: PULSE 63; RESP 20; O2SAT 99
[2022-12-22] MEDS: levETIRAcetam 500 MG TAB PO SCH (08:55)
[2022-12-22] MEDS: NACL 0.9% 1,000 ML IV SCH (08:56)
[2022-12-22 12:41] VITALS: BP 126/70; PULSE 67; RESP 20; TEMP 97.1
== END 2022-12-22 15:10 | disposition home or self-care (01) ==
LOC: MED 22:07 → MMU 12-21 07:06 → MTU 12-21 09:37
PROVIDERS: ADMIT Hospitalist; ATTEND Hospitalist
DX: D64.9 Anemia, unspecified (principal); G93.41 Metabolic encephalopathy; E83.51 Hypocalcemia; E87.6 Hypokalemia; E43 Unspecified severe protein-calorie malnutrition; E87.1 Hypo-osmolality and hyponatremia; G40.909 Epilepsy, unspecified, not intractable, without status epilepticus; I10 Essential (primary) hypertension; E11.9 Type 2 diabetes mellitus without complications; F15.10 Other stimulant abuse, uncomplicated; Z79.82 Long term (current) use of aspirin; Z79.899 Other long term (current) drug therapy; Z59.00 Homelessness unspecified
CPT/HCPCS: 36415; 36430; 71045; 80053; 82550; 83735; 84439; 84443; 84484; 85025; 85610; 85730; 86886; 86900; 86901; 86920; 87081; 96360; 96361; 97112; 97163; 97530; 99284; G0378; P9016; 80048

== ENCOUNTER 2022-12-25 23:32 | Emergency (ER) | payer OTHER ==
[~2022-12-25] VITALS: Ht 167.6 cm; Wt 58.1 kg
[2022-12-25 23:32] VITALS: BP 153/81; PULSE 96; RESP 18; TEMP 97.8; O2SAT 98
[~2022-12-25 23:32] MED LIST changes: -AMOX-999 PO
[2022-12-26] MEDS ORDERED: BACITRACIN OINT 500 UNITS/GM PKT TP ONE (02:30)
[2022-12-26] MEDS ORDERED: CEPH-588 PO (02:46)
[2022-12-26] MEDS ORDERED: NEOMYCIN/POLYMYXIN/BACITRACIN 0.9 GM/1 PKT TP ONE (03:10)
== END 2022-12-26 03:29 | disposition home or self-care (01) ==
LOC: MED 23:32
DX: L97.829 Non-pressure chronic ulcer of other part of left lower leg with unspecified severity (principal); E11.9 Type 2 diabetes mellitus without complications; I10 Essential (primary) hypertension; Z79.899 Other long term (current) drug therapy
CPT/HCPCS: 99283